=== PATIENT | female | born 1945 | race Caucasian/White ===

== ENCOUNTER 2021-10-04 22:59 | Emergency (ER) | payer OTHER, SELFPAY ==
--- NOTE | ~2021-10-04 | XR_ITS ---
EXAMINATION: XR chest 1V portable DATE: 10/05/2021 00:19 INDICATION: Cough. Shortness of breath. COVID-19 pneumonia. TECHNIQUE: A single frontal view of the chest was obtained. COMPARISON: Chest single view 03/23/2007, CT abdomen and pelvis 02/23/2015 FINDINGS: There are mild airspace opacities in right mid and lower lung zones and left lower lung zon e. No pleural effusion or pneumothorax. The heart size is normal. IMPRESSION: 1. Mild airspace opacities in right mid and lower lung zones and left lower lung zone, consistent wit h atelectasis versus pneumonia. Reviewed, dictated and finalized at location A. SIVE GRADER IMPRESSION: 1. Mild airspace opacities in right mid and lower lung zones and left lower holland g zone, consistent with atelectasis versus pneumonia.
[2021-10-04 23:05] VITALS: BP 102/61; PULSE 85; RESP 18; TEMP 36.8; O2SAT 95
--- NOTE | 2021-10-04 23:54 | ECG_ITS ---
Measurements Intervals [place] Rate: 76 P: 74 [place]: 155 QRS: 16 QRSD: 86 T: 61 QT: 367 QTc: 415 Interpretive Statements SINUS RHYTHM BASELINE ARTIFACT- I, II, III, AVR, AVL, AVF NORMAL ECG Electronically Signed On 10-05-2021 9:00:34 REHABILITATION SERVICES MANAGER by Rafael Valentine D.O.
--- NOTE | 2021-10-04 23:55 | ED.GENADULT ---
HPI - General Adult General Chief complaint: Weakness Stated complaint: increased weakness Time Seen by Provider: 10/04/21 23:45 Source: patient Mode of arrival: ambulatory Limitations: no limitations History of Present Illness HPI narrative: Patient is a 76-year-old female complaining of fatigue, generalized weakness, cough, body aches, fever, nausea, vomiting and shortness of breath that started yesterday. Patient states that she had a Covid home test kit and it was positive. Patient states that today she went to a testing center to confirm her positive test and was told that she is positive for Covid. Related Data Allergies Allergy/AdvReac Type Severity Reaction Status Date / Time codeine Allergy Unknown Verified 07/30/17 10:23 meperidine Allergy Unknown NAUSEA Verified 08/19/14 08:16 Review of Systems Review of Systems: All systems reviewed & are unremarkable except as noted in HPI and below Constitutional: Constitutional: Denies excessive sweating, Denies headache(s), Denies lethargy and Denies weight loss Eyes: Eyes: Denies blurry vision, Denies change in vision and Denies loss of vision ENT: Denies dizziness, Denies ear discharge, Denies headache(s), Denies lip swelling, Denies epistaxis, Denies nasal congestion, Denies neck pain, Denies throat swelling and Denies tongue swelling Cardiovascular: Cardiovascular: Denies chest pain, Denies chest pain at rest, Denies chest pain with activity, Denies diaphoresis, Denies rapid heart rate, Denies edema, Denies irregular heart rhythm, Denies lightheadedness and Denies palpitations Respiratory: Respiratory: Denies chest congestion and Denies hemoptysis Gastrointestinal: Gastrointestinal: Denies abdominal pain, Denies melena, Denies hematochezia, Denies diarrhea and Denies hematemesis Musculoskeletal: Musculoskeletal: Denies abnormal gait, Denies deformity, Denies joint swelling, Denies limited range of motion, Denies neck pain and Denies numbness Neurologic: Denies Abnormal speech present, Denies abnormal gait, Denies confusion, Denies dizziness, Denies headache(s), Denies focal weakness, Denies loss of vision, Denies numbness, Denies Other visual disturbances, Denies Sensory deficit (Neuro) and Denies weakness Psychiatric: Psychiatric: Denies confusion, Denies depression, Denies auditory hallucinations, Denies homicidal ideation and Denies suicidal ideation Endocrine: Endocrine: Denies cold intolerance, Denies excessive sweating, Denies fatigue, Denies heat intolerance and Denies palpitations Hematologic/Lymphatic: Hematologic/Lymphatic: Denies easy bleeding and Denies easy bruising Allergic/Immunologic: Allergic/Immunologic: Denies lip swelling, Denies throat swelling and Denies tongue swelling PMFSH Family History Family History (Updated 07/30/17 @ 10:35 by DOCTOR UNKNOWN) Father Family history of diabetes mellitus in first degree relative Patient's father is Diabetes mellitus, Onset Age: 84 Mother Family history of lung cancer, Onset Age: 84 Patient's mother is Other Family history of cardiovascular disease Family history of malignant neoplasm Social History Social History Smoking status: Never smoker Second hand tobacco smoke exposure: No Alcohol intake: never Course Course Emergency Course: Patient reexamined at 2:50 AM, she walked to the bathroom without difficulty, no shortness of breath or nausea vomiting. Patient states that she is feeling better and ready to go home. Vital Signs Vital signs: Vital Signs Temperature 36.8 C 10/04/21 23:05 Pulse Rate 85 10/04/21 23:05 Respiratory Rate 18 10/04/21 23:05 Blood Pressure 102/61 10/04/21 23:05 Pulse Oximetry 95 10/04/21 23:05 Temperature 36.8 C 10/04/21 23:05 Pulse Rate 73 10/05/21 02:05 Respiratory Rate 18 10/05/21 02:05 Blood Pressure 113/91 H 10/05/21 02:05 Pulse Oximetry 95 10/05/21 02:05 Medical Decision
[2021-10-04 23:59] VITALS: BP 104/63; PULSE 63; RESP 18; O2SAT 92
[2021-10-05] MEDS: ONDANSETRON INJ 4 MG/2 ML VIAL IV PUSH (00:22)
[2021-10-05] MEDS: LACTATED RINGERS 1,000 ML 999 ML IV CONT (00:22)
[2021-10-05 00:44] LABS: Alanine Aminotransferase 35 U/L (4-35); Albumin Level 3.6 g/dL (3.5-5.1); Alkaline Phosphatase 94 U/L (38-126); Anion Gap 6 mmol/L (8-16); Aspartate Amino Transferase 50 U/L (14-36); Bilirubin,Total 0.5 mg/dL (0.2-1.3); Blood Urea Nitrogen 23 mg/dL (7-17); Calcium 8.4 mg/dL (8.4-10.2); Carbon Dioxide 23 mmol/L (22-30); Chloride 103 mmol/L (98-107); Estimated CRCL calculation 34 ml/min; Estimated Glomerular Filt Rate 48; Glucose 131 mg/dL (65-110); Lipase 109 U/L (23-300); Potassium 3.8 mmol/L (3.4-5.0); Sodium 132 mmol/L (137-145)
[2021-10-05 00:55] LABS: Troponin I < 0.012 ng/mL (0.000-0.034)
[2021-10-05 00:56] LABS: Basophils Percent Auto 0.3 % (0.2-1.2); Eosinophils Percent Auto 0.2 % (0-4.4); Hematocrit 37.8 % (37.0-47.0); Hemoglobin 12.3 g/dL (12.0-15.0); Immature Granulocyte Absolute 0.02 K/mm3 (0.00-0.031); Immature Granulocyte Percent A 0.3 % (0-0.5); Lymphocytes Absolute Auto 0.98 K/mm3 (0.9-3.2); Lymphocytes Percent Auto 16.3 % (18.3-44.2); Mean Corpuscular HGB Conc 32.5 g/dl (32-36); Mean Corpuscular Hemoglobin 29.2 pg (26-34); Mean Corpuscular Volume 89.8 fl (80-100); Mean Platelet Volume 10.9 fl (7.4-10.4); Monocytes Absolute Auto 0.6 K/mm3 (0.1-0.6); Monocytes Percent Auto 10.1 % (2.6-8.5); Neutrophils Absolute Auto 4.4 K/mm3 (1.3-6.7); Neutrophils Percent Auto 72.8 % (45.5-73.1); Platelet Count Result 178 k/mm3 (150-375); Red Blood Count 4.21 M/mm3 (4.2-5.4); Red Cell Distribution Width 14.4 % (11.5-14.5)
[2021-10-05 02:05] VITALS: BP 113/91; PULSE 73; RESP 18; O2SAT 95
[2021-10-05 03:35] VITALS: BP 94/56; PULSE 72; RESP 18; O2SAT 94
== END 2021-10-05 03:43 | disposition home or self-care (01) ==
PROVIDERS: Emergency Provider Emergency Medicine
DX: U07.1 COVID-19 (principal)
CPT/HCPCS: 36415; 71045; 80053; 83690; 84484; 85025; 93005; 96361; 96374; 99284; J2405; J7120

== ENCOUNTER 2022-04-15 10:44 | Emergency (ER) | payer OTHER, SELFPAY ==
[2022-04-15 10:50] VITALS: BP 116/81; PULSE 74; RESP 18; TEMP 36.9; O2SAT 100
[2022-04-15 11:12] VITALS: BP 116/81; PULSE 74; RESP 18; TEMP 36.9; O2SAT 100
--- NOTE | 2022-04-15 11:13 | ED.SKABFB ---
HPI - Skin/Abscess/Foreign Bdy General Chief complaint: Skin/Abscess/Foreign Body Stated complaint: Rash Time Seen by Provider: 04/15/22 11:13 Source: patient Mode of arrival: ambulatory Limitations: no limitations History of Present Illness HPI narrative: 77-year-old female presented for complaint of rash to upper body and itching over her her entire body for the last 4 days. Denies changes to lotion, soap, detergent etc. She has been using vega Itch spray as needed. She denies lip, tongue, or throat swelling or itching, shortness of breath or chest pain. MD complaint: rash Related Data Home Medications Medication Instructions Recorded Confirmed latanoprost 0.005 % eye drops drp 04/15/22 Allergies Allergy/AdvReac Type Severity Reaction Status Date / Time codeine Allergy Unknown unknown Verified 04/15/22 10:52 meperidine Allergy Unknown NAUSEA Verified 04/15/22 10:52 Review of Systems Review of Systems: CONSTITUTIONAL: Denies body aches, fever, chills, or sweats. EYES: Denies visual changes, redness, or discharge. ENT: Denies rhinorrhea, congestion, sore throat, or otalgia. CARDIOVASCULAR: Denies chest pain, palpitations, or edema. RESPIRATORY: Denies cough or dyspnea. GASTROINTESTINAL: Denies abdominal pain, nausea, vomiting, or diarrhea. GENITOURINARY: Denies dysuria or hematuria. SKIN: reports rash, itching MUSCULOSKELETAL: Denies back pain, joint pain, or myalgia. NEUROLOGIC: Denies headache, numbness, tingling, or weakness. [facility] Surgical History Surgical History History of hysterectomy Family History Family History Father Family history of diabetes mellitus in first degree relative Patient's father is Diabetes mellitus, Onset Age: 84 Hypertension Heart disease Mother Family history of lung cancer, Onset Age: 84 Patient's mother is Grandparent Diabetes mellitus Breast cancer Other Family history of cardiovascular disease Family history of malignant neoplasm Social History Social History Smoking status: Never smoker Second hand tobacco smoke exposure: No Alcohol intake: current Comments At time of signature, I have reviewed and agree with nursing past medical, surgical, social and family history unless otherwise noted. Please see nursing chart for further information. There is no relevant family history pertinent to the presenting complaint Exam Narrative: GENERAL: Well-appearing EYES: conjunctivae clear, and EOMI. ENT: Mucous membranes moist. Oropharynx without edema, erythema or lesions. NECK: Supple. No lymphadenopathy CHEST: Clear to auscultation. No respiratory distress. HEART: Regular rate and rhythm. SKIN: Warm, dry. Scattered patches of pale pink round raised lesions c/w dermatitis, evidence of scratching to torso and arms NEURO: Alert and oriented x3. PSYCH: Normal mood and affect Course Course Emergency Course: Patient is aware of diagnosis, understands and agrees to treatment plan. Anticipatory guidance given. Patient agrees to follow-up as directed and is aware of reasons to seek care at the emergency department. Portions of this record may have been created with voice recognition software Level of Care: Express Care Visit Vital Signs Vital signs: Vital Signs Temperature 98.4 F 04/15/22 10:50 Pulse Rate 74 04/15/22 10:50 Respiratory Rate 18 04/15/22 10:50 Blood Pressure 116/81 04/15/22 10:50 Pulse Oximetry 100 04/15/22 10:50 Oxygen Delivery Room Air 04/15/22 10:50 Temperature 98.4 F 04/15/22 11:12 Pulse Rate 74 04/15/22 11:12 Respiratory Rate 18 04/15/22 11:12 Blood Pressure 116/81 04/15/22 11:12 Pulse Oximetry 100 04/15/22 11:12 Oxygen Delivery Room Air 04/15/22 11:12 Reviewed MDM
== END 2022-04-15 11:31 | disposition home or self-care (01) ==
PROVIDERS: Emergency Provider Nurse Practitioner Family
DX: L23.9 Allergic contact dermatitis, unspecified cause (principal)
CPT/HCPCS: 99213; G0463

== ENCOUNTER 2022-07-12 11:10 | Outpatient (CLI) | payer OTHER, SELFPAY ==
[2022-07-12 19:50] LABS: Basophils Percent Auto 0.6 % (0.2-1.2); Eosinophils Absolute Auto 0.1 K/mm3 (0-0.3); Eosinophils Percent Auto 1.8 % (0-4.4); Hematocrit 44.3 % (37.0-47.0); Hemoglobin 14.1 g/dL (12.0-15.0); Immature Granulocyte Absolute 0.01 K/mm3 (0.00-0.031); Immature Granulocyte Percent A 0.2 % (0-0.5); Mean Corpuscular HGB Conc 31.8 g/dl (32-36); Mean Corpuscular Hemoglobin 29.3 pg (26-34); Mean Corpuscular Volume 91.9 fl (80-100); Mean Platelet Volume 12.6 fl (7.4-10.4); Monocytes Absolute Auto 0.3 K/mm3 (0.1-0.6); Monocytes Percent Auto 5.8 % (2.6-8.5); Neutrophils Absolute Auto 2.6 K/mm3 (1.3-6.7); Neutrophils Percent Auto 51.6 % (45.5-73.1); Platelet Count Result 189 k/mm3 (150-375); Red Blood Count 4.82 M/mm3 (4.2-5.4)
[2022-07-12 20:24] LABS: Alanine Aminotransferase 22 U/L (6-35); Albumin Level 4.1 g/dL (3.5-5.1); Alkaline Phosphatase 98 U/L (38-126); Anion Gap 6 mmol/L (8-16); Aspartate Amino Transferase 34 U/L (14-36); Bilirubin,Total 0.4 mg/dL (0.2-1.3); Blood Urea Nitrogen 21 mg/dL (7-17); Calcium 9.4 mg/dL (8.4-10.2); Carbon Dioxide 29 mmol/L (22-30); Chloride 104 mmol/L (98-107); Estimated Glomerular Filt Rate > 60; Glucose 93 mg/dL (65-110); Potassium 4.8 mmol/L (3.4-5.0); Sodium 139 mmol/L (137-145)
[2022-07-12 21:49] LABS: Vitamin D 25 Hydroxy 45.7 ng/mL
[2022-07-12 22:20] LABS: Hepatitis C Virus Antibody Negative (Negative)
== END 2022-07-12 11:11 | disposition home or self-care (01) ==
LOC: ANHGOSHLAB 11:11
PROVIDERS: Visit Provider Family Medicine
DX: E55.9 Vitamin D deficiency, unspecified (principal); Z78.0 Asymptomatic menopausal state; Z00.00 Encounter for general adult medical examination without abnormal findings; Z11.59 Encounter for screening for other viral diseases
CPT/HCPCS: 36415; 80053; 82306; 85025; 86803

== ENCOUNTER → 2022-09-18 09:55 | Outpatient (CLI) | payer OTHER, SELFPAY ==
--- NOTE | ~2022-09-18 | XR_ITS ---
XR chest 2V DATE: 09/18/2022 10:20 INDICATION: Cough TECHNIQUE: 2 views COMPARISON: 10/05/2021 portable AP chest FINDINGS: There is bilateral hyperinflation suggesting obstructive airways disease. No pulmonary infi ltrate or consolidation, pleural effusion or pulmonary vascular congestion or pneumothorax. Normal heart size. No hilar or mediastinal enlargement. There is osteopenia. IMPRESSION: Bilateral hyperinflation; otherwise no active cardiopulmonary disease Reviewed, dictated and finalized at location B. CONTENT & SOCIAL MEDIA MANAGER IMPRESSION: Bilateral hyperinflation; otherwise no active cardiopulmonary disea se
== END ==
PROVIDERS: PCP Physician Assistant; Visit Provider Physician Assistant
DX: R05.9 Cough, unspecified (principal); R91.8 Other nonspecific abnormal finding of lung field
CPT/HCPCS: 71046

== ENCOUNTER 2022-11-05 14:25 | Outpatient (CLI) | payer OTHER, SELFPAY ==
--- NOTE | ~2022-11-05 | MM_ITS ---
EXAMINATION: MM screening tejas BI w josé luis HISTORY: Screening mammogram TECHNIQUE: Craniocaudal and mediolateral oblique 3-D tomosynthesis images were obtained and synthetic 2-D images were generated. CAD analysis was submitted and interpreted. COMPARISON: 08/26/2017, 08/23/2015 bilateral screening mammogram examinations BREAST PARENCHYMAL COMPOSITION: There are scattered areas of fibroglandular density. FINDINGS: There is no evidence of suspicious mass, calcification, or architectural distortion to sugg est malignancy in either breast. There has been no suspicious interval change. IMPRESSION: 1. No mammographic evidence of malignancy. 2. Recommend routine screening mammography in one year. BI-RADS Category 1: Negative Reviewed, dictated and finalized at location A. E VEHICLE SERVICE ATTENDANT
--- NOTE | ~2022-11-05 | DEXA_ITS ---
Bone Density Report Name: RADHA ZAMORANO Age: 77 Sex: Female Ethnicity: White Date of : 1945 Indication: postmenopausal; screening for osteoporosis; parental hip fracture; hysterectomy; Referring Provider: CAMILA WHITESIDE Study: Bone densitometry was performed. Exam Date: November 05, 2022 Accession number: [id number] Bone Density: Region BMD T-score Z-score Classification AP Spine(L1-L4) 0.925 -1.1 1.4 Osteopenia Femoral Neck (Left) 0.597 -2.3 -0.1 Osteopenia Total Hip (Left) 0.748 -1.6 0.3 Osteopenia Femoral Neck (Right) 0.575 -2.5 -0.3 Osteoporosis Total Hip (Right) 0.753 -1.5 0.3 Osteopenia Total Hip Mean 0.751 -1.6 0.3 Osteopenia World Health Organization criteria for BMD impression classify patients as: Normal (T-score at or above -1.0), Osteopenia (T-score between -1.0 and -2.5), or Osteoporosis (T-score at or below -2.5). Clinical Information Provided by Patient: Parent has had a hip fracture Has used the following medications: Vitamin D, Calcium Has the following medical conditions: Hysterectomy Patient maximum height was 64 Menopause Age: 49 No regular weight bearing exercise Drinks caffeinated beverages Onset of menses at age 13 Number of children 2 Impression: The patient has osteoporosis, based on the Right Femoral Neck T-score. The patient has risk factors, including: parental hip fracture. Discussion: INCREASED RISK OF FRACTURE. BONE DENSITY IS UNDESIRABLY LOW AT ONE OR MORE SKELETAL SITES, CONSISTENT WITH POSTMENOPAUSAL OSTEOPOROSIS. This patient's lowest T-score meets the World Health Organization's (WHO) criteria for osteoporosis at one or more sites (T-score -2.5 or below). In untreated patients, the risk of osteoporotic fracture increases approximately two-fold for each 1.0 SD decrease in T-score. Low bone density is not the only risk factor for fracture; also consider factors such as patient's age, frailty or poor health, risk of falling, risk of injury, previous osteoporotic fracture, family history of osteoporosis, cigarette smoking, low body weight, etc. Not everyone with low bone mineral density has osteoporosis; osteomalacia and other metabolic bone disorders should also be considered. Patients who have osteoporosis should be evaluated for specific diseases and conditions (secondary causes) that may cause or contribute to bone loss. The [place] [employer] Endocrinologists (AACE) and National Osteoporosis Foundation (NOF) recommend pharmacologic intervention for all postmenopausal women whose T-score is in this range. The patient should follow a healthful lifestyle (good nutrition with adequate calcium and vitamin D, and appropriate weight-bearing exercise). Follow-Up: Consider a repeat BMD and Vertebral Fracture Assessment (VFA) exam in 2 years or sooner if medically necessary, to reassess this patient's status. Reported by: SHALINI on 11/05/2022 3:02:00 PM.
== END 2022-11-05 14:26 | disposition home or self-care (01) ==
LOC: ANHIMG 14:38
PROVIDERS: PCP Physician Assistant; Visit Provider Family Medicine
DX: Z12.31 Encounter for screening mammogram for malignant neoplasm of breast (principal); Z78.0 Asymptomatic menopausal state; M85.88 Other specified disorders of bone density and structure, other site; M85.852 Other specified disorders of bone density and structure, left thigh; M85.851 Other specified disorders of bone density and structure, right thigh; M81.0 Age-related osteoporosis without current pathological fracture
CPT/HCPCS: 77063; 77067; 77080

== ENCOUNTER 2022-11-22 01:03 | Day surgery (SDC) | payer OTHER, SELFPAY ==
[2022-11-09 12:30] VITALS: BMI 26.6
--- NOTE | 2022-11-21 14:30 | PM.HPGS ---
History of Present Illness History of Present Illness Consent: Risks, benefits, and alternatives have been discussed and questions answered. Patient agrees to proceed with procedure. Chief complaint: hx colon polyps Narrative: Renee Gasca is a 77 year old female Referred for colon cancer screening. She had a polyp removed about 7 years ago Review of Systems Review of Systems: All systems reviewed & are unremarkable except as noted in HPI and below PMFSH Past Medical History Medical History Herniated disc Surgical History Surgical History History of hysterectomy Family History Family History Father Family history of diabetes mellitus in first degree relative Patient's father is Diabetes mellitus, Onset Age: 84 Hypertension Heart disease Mother Family history of lung cancer, Onset Age: 84 Patient's mother is Grandparent Diabetes mellitus Breast cancer Other Family history of cardiovascular disease Family history of malignant neoplasm Social History Social History Smoking status: Never smoker Second hand tobacco smoke exposure: No Alcohol intake: current Alcohol use details: occasional Substance use: never Substance use type: does not use Lack of Transportation: No Lack of Food: Never True Current Housing: I Have Housing Concerned About Future Housing: No Difficulty Paying Gas/Electric Bills: No Difficulty Paying for Meds: No Currently Unemployed: No Education: High School Diploma/GED Living arrangements: alone Occupation/Education: retired Gender identity (if verbalized by the patient): Female Spiritual care concerns: No Agree to blood products: Yes Meds Home Medications and Allergies Home Medications Medication Instructions Recorded Confirmed Type latanoprost 0.005 % eye drops 1 drp EACH EYE HS 08/21/22 11/09/22 History tramadol 50 mg tablet 50 mg PO BID PRN Pain 11/07/22 11/09/22 History calcium 600 mg capsule 600 mg PO DAILY 11/09/22 11/09/22 History cholecalciferol (vitamin D3) 25 25 mcg PO DAILY 11/09/22 11/09/22 History mcg (1,000 unit) tablet glucosamine sulf dipot 1 cap PO DAILY 11/09/22 11/09/22 History chlr,msm,chond 550 mg-C 30 mg-david 1 mg capsule (Glucosamine Chondroitin) multivitamin with minerals-folic 1 tablet PO DAILY 11/09/22 11/09/22 History acid 0.4 mg tablet vit A 300 mcg-C 200 mg-E 27 1 tablet PO DAILY 11/09/22 11/09/22 History mg-lutein 2 mg and minerals tablet (Healthy Eyes) Allergies Allergy/AdvReac Type Severity Reaction Status Date / Time codeine Allergy Unknown Nausea Verified 11/22/22 08:12 meperidine Allergy Unknown NAUSEA Verified 11/22/22 08:12 Exam Resp: Auscultation: clear to auscultation bilaterally Cardio: Rate: regular rate Rhythm: regular rhythm GI: GI Palp: Yes Soft to palpation and No Tenderness to palpation present (GI) Assessment and Plan Assessment and plan (1) Colon cancer screening: Code(s): Z12.11 - Encounter for screening for malignant neoplasm of colon Status: Acute Assessment and Plan: Colonoscopy with possible biopsy or polypectomy or cautery or injection of substances.
[2022-11-22 08:13] VITALS: BP 118/68; PULSE 82; RESP 18; TEMP 36.2; O2SAT 99
[2022-11-22] MEDS: LACTATED RINGERS 1,000 ML 150 ML IV CONT (08:24)
--- NOTE | 2022-11-22 08:47 | WPDANESEPPF ---
Anes - Initial Pre Proc Eval Procedure: Operation Date: 11/22/22 09:30 Proposed Procedures p Colonoscopy - Jett Mack MD Date/Time: 11/22/22 08:47 Surgeon: Jett Mack MD Pre Op Diagnosis: hx colon polyps Patient Data Age: 77 Gender: F Height: 1.6 m Weight: 70.7 kg Last Vital Signs Temp 36.2 C L 11/22/22 08:13 Pulse 82 11/22/22 08:13 Resp 18 11/22/22 08:13 BP 118/68 11/22/22 08:13 Pulse Ox 99 11/22/22 08:13 O2 Del Method Room Air 11/22/22 08:13 Allergies Allergy/AdvReac Type Severity Reaction Status Date / Time codeine Allergy Unknown Nausea Verified 11/22/22 08:12 meperidine Allergy Unknown NAUSEA Verified 11/22/22 08:12 Home Medications Medication Instructions Recorded Confirmed Type latanoprost 0.005 % eye drops 1 drp EACH EYE HS 08/21/22 11/09/22 History tramadol 50 mg tablet 50 mg PO BID PRN Pain 11/07/22 11/09/22 History calcium 600 mg capsule 600 mg PO DAILY 11/09/22 11/09/22 History cholecalciferol (vitamin D3) 25 25 mcg PO DAILY 11/09/22 11/09/22 History mcg (1,000 unit) tablet glucosamine sulf dipot 1 cap PO DAILY 11/09/22 11/09/22 History chlr,msm,chond 550 mg-C 30 mg-david 1 mg capsule (Glucosamine Chondroitin) multivitamin with minerals-folic 1 tablet PO DAILY 11/09/22 11/09/22 History acid 0.4 mg tablet vit A 300 mcg-C 200 mg-E 27 1 tablet PO DAILY 11/09/22 11/09/22 History mg-lutein 2 mg and minerals tablet (Healthy Eyes) Patient hx anesthesia problems: post op nausea/vomiting Family hx anesthesia problems: none Results Review: All pre-operative results and documents have been reviewed as part of the pre-operative evaluation. [facility] Past Medical History Medical History Herniated disc Surgical History Surgical History History of hysterectomy Family History Family History Father Family history of diabetes mellitus in first degree relative Patient's father is Diabetes mellitus, Onset Age: 84 Hypertension Heart disease Mother Family history of lung cancer, Onset Age: 84 Patient's mother is Grandparent Diabetes mellitus Breast cancer Other Family history of cardiovascular disease Family history of malignant neoplasm Social History Social History Smoking status: Never smoker Second hand tobacco smoke exposure: No Alcohol intake: current Alcohol use details: occasional Substance use: never Substance use type: does not use Lack of Transportation: No Lack of Food: Never True Current Housing: I Have Housing Concerned About Future Housing: No Difficulty Paying Gas/Electric Bills: No Difficulty Paying for Meds: No Currently Unemployed: No Education: High School Diploma/GED Living arrangements: alone Occupation/Education: retired Gender identity (if verbalized by the patient): Female Spiritual care concerns: No Agree to blood products: Yes Anes - Eval Final PreProcedure Day of Procedure 11/22/22 08:47 Patient weight: overweight Heart: regular rate and rhythm Lungs: clear to auscultation Airway: Mallampati scale class 1 Neurological: alert and oriented Last oral intake: >/= 8 hours ASA classification: II Emergent: no Anesthetic plan: proceed Anesthesia type and monitoring: general GIVS and standard monitoring Results Review: All pre-operative results and documents have been reviewed as part of the pre-operative evaluation. Informed Consent: The patient's anesthetic plan and its attendant risks and benefits were discussed with the patient/family/POA. Questions were solicited and answers provided to the satisfaction of the patient/family/POA.
[2022-11-22 09:14] VITALS: BP 107/91; PULSE 71; RESP 18; O2SAT 98
[2022-11-22 09:24] VITALS: BP 117/59; PULSE 72; O2SAT 99
[2022-11-22 09:34] VITALS: BP 113/64; PULSE 77; O2SAT 100
== END 2022-11-22 09:49 | disposition home or self-care (01) ==
PROVIDERS: PCP Family Medicine; Visit Provider Internal Medicine Gastroenterology
PROC: 0DJD8ZZ Inspection of Lower Intestinal Tract, Via Natural or Artificial Opening Endoscopic (ICD-10-PCS; CPT 45378; principal; 2022-11-22 09:30)
DX: Z12.11 Encounter for screening for malignant neoplasm of colon (principal); D12.8 Benign neoplasm of rectum; K57.30 Diverticulosis of large intestine without perforation or abscess without bleeding; K64.8 Other hemorrhoids
CPT/HCPCS: 45385; 88305; J2704; J7120

== ENCOUNTER 2023-04-10 09:24 | Outpatient (CLI) | payer OTHER, SELFPAY ==
[2023-04-10 09:49] LABS: Basophils Percent Auto 0.4 % (0.2-1.2); Eosinophils Absolute Auto 0.1 K/mm3 (0-0.3); Eosinophils Percent Auto 0.8 % (0-4.4); Hematocrit 41.8 % (37.0-47.0); Hemoglobin 13.3 g/dL (12.0-15.0); Immature Granulocyte Absolute 0.02 K/mm3 (0.00-0.031); Immature Granulocyte Percent A 0.3 % (0-0.5); Lymphocytes Absolute Auto 2.04 K/mm3 (0.9-3.2); Lymphocytes Percent Auto 26.4 % (18.3-44.2); Mean Corpuscular HGB Conc 31.8 g/dl (32-36); Mean Corpuscular Hemoglobin 29.5 pg (26-34); Mean Corpuscular Volume 92.7 fl (80-100); Mean Platelet Volume 10.4 fl (7.4-10.4); Monocytes Absolute Auto 0.4 K/mm3 (0.1-0.6); Monocytes Percent Auto 4.9 % (2.6-8.5); Neutrophils Absolute Auto 5.2 K/mm3 (1.3-6.7); Neutrophils Percent Auto 67.2 % (45.5-73.1); Platelet Count Result 223 k/mm3 (150-375); Red Blood Count 4.51 M/mm3 (4.2-5.4); Red Cell Distribution Width 14.6 % (11.5-14.5); White Blood Count 7.7 K/mm3 (4.5-10.0)
[2023-04-10 10:07] LABS: Alanine Aminotransferase 18 U/L (6-35); Albumin Level 3.9 g/dL (3.5-5.1); Alkaline Phosphatase 74 U/L (38-126); Anion Gap 3 mmol/L (8-16); Aspartate Amino Transferase 24 U/L (14-36); Bilirubin,Total 0.4 mg/dL (0.2-1.3); Blood Urea Nitrogen 32 mg/dL (7-17); Calcium 9.5 mg/dL (8.4-10.2); Carbon Dioxide 33 mmol/L (22-30); Chloride 105 mmol/L (98-107); Cholesterol 208 mg/dL (0-200); Estimated Glomerular Filt Rate > 60; Glucose 80 mg/dL (65-110); HDL Direct 79 mg/dL; LDL Cholesterol Direct 91 mg/dL; Potassium 4.5 mmol/L (3.4-5.0); Sodium 141 mmol/L (137-145); Triglycerides 97 mg/dL (<150)
== END 2023-04-10 09:25 | disposition home or self-care (01) ==
LOC: ANHLAB 09:27
PROVIDERS: PCP Family Medicine; Visit Provider Physician Assistant
DX: E66.3 Overweight (principal); E78.5 Hyperlipidemia, unspecified; H40.9 Unspecified glaucoma; M85.80 Other specified disorders of bone density and structure, unspecified site; Z78.0 Asymptomatic menopausal state; Z79.899 Other long term (current) drug therapy
CPT/HCPCS: 36415; 80053; 80061; 84443; 85025

== ENCOUNTER 2023-04-23 09:49 | Outpatient (CLI) | payer OTHER, SELFPAY ==
--- NOTE | ~2023-04-23 | XR_ITS ---
EXAMINATION: XR lumbar spine min 4V DATE: 04/23/2023 10:45 INDICATION: Low back pain TECHNIQUE: Anteroposterior and lateral views of the lumbar spine, and cone-down lateral view of the l umbosacral junction were obtained. COMPARISON: None. FINDINGS: There are 2 mm of anterolisthesis of L3 on L4. The vertebral body heights are normal. There is mild loss of intervertebral disc space height at L5-S1. There is moderate facet joint osteoarthri tis. No fracture is identified. IMPRESSION: 1. Mild lumbar spondylosis without acute findings. Reviewed, dictated and finalized at location L.
--- NOTE | ~2023-04-23 | XR_ITS ---
AP view of the pelvis and AP and lateral views of the right hip Clinical history: Pain Findings: No acute fracture or dislocation is seen. Osseous alignment is anatomic. Bilateral hip and SI joint spaces are preserved. Soft tissues are unremarkable. Impression: No significant abnormality is seen. Reviewed, dictated and finalized at location . Impression: No significant abnormality is seen.
[2023-04-23 11:02] LABS: Alanine Aminotransferase 21 U/L (6-35); Albumin Level 3.9 g/dL (3.5-5.1); Alkaline Phosphatase 82 U/L (38-126); Aspartate Amino Transferase 26 U/L (14-36); Bilirubin,Total 0.2 mg/dL (0.2-1.3)
[2023-04-26 21:09] LABS: Albumin 3.6 g/dL (3.8-4.8); Alpha 1 Globulin 0.3 g/dL (0.2-0.3); Alpha 2 Globulin 0.8 g/dL (0.5-0.9); Beta 1 Globulin 0.4 g/dL (0.4-0.6); Protein, Total 6.5 g/dL (6.1-8.1)
[2023-05-02 13:22] LABS: Creatinine, Random Urine 26 mg/dL (20-275)
== END 2023-04-23 09:50 | disposition home or self-care (01) ==
PROVIDERS: PCP Family Medicine; Visit Provider Family Medicine
DX: M89.8X9 Other specified disorders of bone, unspecified site (principal); M54.50 Low back pain, unspecified; M54.30 Sciatica, unspecified side; M43.06 Spondylolysis, lumbar region
CPT/HCPCS: 36415; 72110; 73502; 80076; 82570; 84155; 84156; 84165; 84166

== ENCOUNTER 2023-04-24 03:13 | Emergency (ER) | payer OTHER, SELFPAY ==
--- NOTE | ~2023-04-24 | XR_ITS ---
EXAMINATION: XR chest 2V DATE: 04/24/2023 03:49 INDICATION: Left chest pain. TECHNIQUE: Frontal and lateral views of the chest were obtained. COMPARISON: Chest 2 views 09/18/2022 FINDINGS: The chest demonstrates clear lungs without pneumonia, pleural effusion, or pneumothorax. Th e heart size is normal. IMPRESSION: 1. No acute cardiopulmonary disease. Reviewed, dictated and finalized at location E.
--- NOTE | 2023-04-24 03:15 | ECG_ITS ---
Measurements Intervals [place] Rate: 62 P: 66 CO: 149 QRS: 3 QRSD: 93 T: 50 QT: 384 QTc: 390 Interpretive Statements SINUS RHYTHM POSSIBLE LEFT ATRIAL ENLARGEMENT DELAYED PRECORDIAL R/S TRANSITION BORDERLINE ECG COMPARED TO ECG 10/05/2021 00:49:52 NO SIGNIFICANT CHANGES Electronically Signed On 04-24-2023 7:05:19 CDT by Rafael Valentine D.O.
[2023-04-24 03:18] VITALS: BP 143/101; PULSE 70; RESP 22; TEMP 36.6; O2SAT 99
[2023-04-24 03:27] VITALS: O2SAT 91
[2023-04-24 03:29] LABS: Basophils Percent Auto 0.1 % (0.2-1.2); Hematocrit 43.2 % (37.0-47.0); Immature Granulocyte Absolute 0.01 K/mm3 (0.00-0.031); Immature Granulocyte Percent A 0.1 % (0-0.5); Lymphocytes Absolute Auto 4.46 K/mm3 (0.9-3.2); Lymphocytes Percent Auto 66.9 % (18.3-44.2); Mean Corpuscular HGB Conc 32.4 g/dl (32-36); Mean Corpuscular Hemoglobin 29.4 pg (26-34); Mean Corpuscular Volume 90.6 fl (80-100); Mean Platelet Volume 10.4 fl (7.4-10.4); Monocytes Absolute Auto 0.4 K/mm3 (0.1-0.6); Monocytes Percent Auto 5.5 % (2.6-8.5); Neutrophils Absolute Auto 1.8 K/mm3 (1.3-6.7); Neutrophils Percent Auto 27.4 % (45.5-73.1); Platelet Count Result 202 k/mm3 (150-375); Red Blood Count 4.77 M/mm3 (4.2-5.4); Red Cell Distribution Width 14.3 % (11.5-14.5); White Blood Count 6.7 K/mm3 (4.5-10.0)
[2023-04-24] MEDS: ASPIRIN 81 MG CHEWABLE TABLET 324 MG PO (03:33)
[2023-04-24 03:42] LABS: Alanine Aminotransferase 21 U/L (6-35); Albumin Level 3.9 g/dL (3.5-5.1); Alkaline Phosphatase 83 U/L (38-126); Anion Gap 1 mmol/L (8-16); Aspartate Amino Transferase 27 U/L (14-36); Bilirubin,Total 0.3 mg/dL (0.2-1.3); Blood Urea Nitrogen 28 mg/dL (7-17); Calcium 9.3 mg/dL (8.4-10.2); Carbon Dioxide 35 mmol/L (22-30); Chloride 105 mmol/L (98-107); Estimated CRCL calculation 44 ml/min; Estimated Glomerular Filt Rate > 60; Glucose 89 mg/dL (65-110); Lipase 182 U/L (23-300); Potassium 3.9 mmol/L (3.4-5.0); Sodium 141 mmol/L (137-145)
[2023-04-24 03:54] LABS: Troponin I < 0.012 ng/mL (0.000-0.034)
[2023-04-24 03:56] LABS: Prothrombin Time 13.3 Seconds (11.1-14.7)
[2023-04-24 03:57] LABS: Partial Thromboplastin Time 27.6 SECONDS (22.3-36.8)
[2023-04-24] MEDS: MORPHINE SULFATE (*CRX) 4 MG/ML INJ IV PUSH (04:39)
[2023-04-24] MEDS: ONDANSETRON INJ 4 MG/2 ML VIAL IV PUSH (04:39)
--- NOTE | 2023-04-24 04:44 | ED.CHESTPAIN ---
HPI - Chest Pain General Chief Complaint: Chest Pain <SHELBIE Ross Last Filed: 04/24/23 14:08> Stated Complaint: left sided breast/back pain <SHELBIE Ross Last Filed: 04/24/23 14:08> Time Seen by Provider: 04/24/23 03:46 <SHELBIE Ross Last Filed: 04/24/23 14:08> Source: patient <SHELBIE Ross Last Filed: 04/24/23 14:08> Mode of arrival: ambulatory <SHELBIE Ross Last Filed: 04/24/23 14:08> Limitations: no limitations <SHELBIE Ross Last Filed: 04/24/23 14:08> History of Present Illness HPI narrative: Patient is a 78-year-old female who presents to the ED with report of left-sided chest wall pain. Patient reports she saw her primary care doctor last for pain all over, which she described as pain from her head to her toes. Unable to localize pain. Primary care doctor prescribed her prednisone. Patient did not initially pick this up from the pharmacy. On Saturday, patient developed worsening and more localized pain to her left lower chest wall below her left breast, radiating around to her left mid to upper back. She states the pain has been constant since then. Unable to find any relief. She has not taken the prednisone. Has not tried anything else for the pain. She reports mild difficulty breathing due to the pain. Denies pain worsening with deep breaths or exertional SOB. She noticed a small area of rash below her left breast today. Patient denies any fevers, nausea, vomiting, abdominal pain, BLE pain or swelling. <SHELBIE Ross Last Filed: 04/24/23 14:08> Related Data Home Medications: Home Medications Medication Instructions Recorded Confirmed latanoprost 0.005 % eye drops 1 drp EACH EYE HS 08/21/22 04/24/23 tramadol 50 mg tablet 50 mg PO BID PRN Pain 11/07/22 04/24/23 calcium 600 mg capsule 600 mg PO DAILY 11/09/22 04/24/23 cholecalciferol (vitamin D3) 25 25 mcg PO DAILY 11/09/22 04/24/23 mcg (1,000 unit) tablet glucosamine sulf dipot 1 cap PO DAILY 11/09/22 04/24/23 chlr,msm,chond 550 mg-C 30 mg-david 1 mg capsule (Glucosamine Chondroitin) multivitamin with minerals-folic 1 tablet PO DAILY 11/09/22 04/24/23 acid 0.4 mg tablet vit A 300 mcg-C 200 mg-E 27 1 tablet PO DAILY 11/09/22 04/24/23 mg-lutein 2 mg and minerals tablet (Healthy Eyes) <Gabriella Mackenzie PA-C - Last Filed: 04/24/23 14:08> Allergies/Adverse Reactions: Allergies Allergy/AdvReac Type Severity Reaction Status Date / Time codeine Allergy Unknown Nausea Verified 04/24/23 11:44 meperidine Allergy Unknown NAUSEA Verified 04/24/23 11:44 <Gabriella Mackenzie PA-C - Last Filed: 04/24/23 14:08> Review of Systems Review of Systems: CONSTITUTIONAL: Denies fever, chills, or sweats. EYES: Denies visual changes. CARDIOVASCULAR: See HPI. RESPIRATORY: See HPI. GASTROINTESTINAL: Denies abdominal pain, nausea, vomiting, or diarrhea. GENITOURINARY: Denies dysuria or hematuria. SKIN: See HPI. MUSCULOSKELETAL: See HPI. NEUROLOGIC: Denies headache, numbness, or weakness. <SHELBIE Ross Last Filed: 04/24/23 14:08> All systems reviewed & are unremarkable except as noted in HPI and below <Gabriella Mackenzie PA-C - Last Filed: 04/24/23 14:08> [facility] Past Medical History Medical History: Medical History Herniated disc <SHELBIE Ross Last Filed: 04/24/23 14:08> Surgical History Surgical History: Surgical History History of hysterectomy <SHELBIE Ross Last Filed: 04/24/23 14:08> Family History Family History: Family History Father Family history of diabetes mellitus in first degree relative Patient's father is
[2023-04-24] MEDS: valACYclovir HCL 500 MG TABLET 1000 MG PO (05:08)
[2023-04-24 05:14] VITALS: BP 134/79; PULSE 62; RESP 16; O2SAT 98
== END 2023-04-24 05:22 | disposition home or self-care (01) ==
PROVIDERS: Emergency Medicine; Emergency Provider Physician Assistant; PCP Family Medicine
DX: B02.9 Zoster without complications (principal); R07.89 Other chest pain
CPT/HCPCS: 36415; 71046; 80053; 83690; 84484; 85025; 85610; 85730; 93005; 96374; 96375; 99284; A9270; J2270; J2405

== ENCOUNTER 2023-09-18 10:47 | Outpatient (CLI) | payer OTHER, SELFPAY ==
[2023-09-18 11:42] LABS: Basophils Percent Auto 0.6 % (0.2-1.2); Eosinophils Absolute Auto 0.1 K/mm3 (0-0.3); Hemoglobin 13.9 g/dL (12.0-15.0); Immature Granulocyte Absolute 0.01 K/mm3 (0.00-0.031); Immature Granulocyte Percent A 0.2 % (0-0.5); Lymphocytes Absolute Auto 2.05 K/mm3 (0.9-3.2); Lymphocytes Percent Auto 40.1 % (18.3-44.2); Mean Corpuscular HGB Conc 32.3 g/dl (32-36); Mean Corpuscular Hemoglobin 29.6 pg (26-34); Mean Corpuscular Volume 91.7 fl (80-100); Mean Platelet Volume 10.5 fl (7.4-10.4); Monocytes Absolute Auto 0.3 K/mm3 (0.1-0.6); Monocytes Percent Auto 6.1 % (2.6-8.5); Neutrophils Absolute Auto 2.6 K/mm3 (1.3-6.7); Platelet Count Result 234 k/mm3 (150-375); Red Blood Count 4.69 M/mm3 (4.2-5.4); Red Cell Distribution Width 14.2 % (11.5-14.5); White Blood Count 5.1 K/mm3 (4.5-10.0)
[2023-09-18 12:01] LABS: Alanine Aminotransferase 20 U/L (6-35); Albumin Level 4.1 g/dL (3.5-5.1); Alkaline Phosphatase 89 U/L (38-126); Anion Gap 6 mmol/L (8-16); Aspartate Amino Transferase 27 U/L (14-36); Bilirubin,Total 0.6 mg/dL (0.2-1.3); Blood Urea Nitrogen 25 mg/dL (7-17); Calcium 9.2 mg/dL (8.4-10.2); Carbon Dioxide 29 mmol/L (22-30); Chloride 105 mmol/L (98-107); Cholesterol 230 mg/dL (0-200); Estimated Glomerular Filt Rate > 60; Glucose 87 mg/dL (65-110); HDL Direct 86 mg/dL; Potassium 4.2 mmol/L (3.4-5.0); Sodium 140 mmol/L (137-145); Triglycerides 50 mg/dL (<150)
[2023-09-18 12:11] LABS: LDL Cholesterol Direct 99 mg/dL
== END 2023-09-18 10:48 | disposition home or self-care (01) ==
PROVIDERS: PCP Family Medicine; Visit Provider Physician Assistant
DX: E78.2 Mixed hyperlipidemia (principal); M81.0 Age-related osteoporosis without current pathological fracture; Z79.899 Other long term (current) drug therapy
CPT/HCPCS: 36415; 80053; 80061; 84443; 85025

== ENCOUNTER 2024-03-26 11:08 | Outpatient (CLI) | payer OTHER, SELFPAY ==
[2024-03-26 15:30] LABS: Alanine Aminotransferase 16 U/L (6-35); Alkaline Phosphatase 69 U/L (38-126); Anion Gap 4 mmol/L (4-12); Aspartate Amino Transferase 42 U/L (14-36); Bilirubin,Total 0.4 mg/dL (0.2-1.3); Blood Urea Nitrogen 27 mg/dL (7-17); Calcium 9.7 mg/dL (8.4-10.2); Carbon Dioxide 30 mmol/L (22-30); Chloride 105 mmol/L (98-107); Cholesterol 226 mg/dL (0-200); Estimated Glomerular Filt Rate > 60; Glucose 88 mg/dL (65-110); HDL Direct 92 mg/dL; Potassium 4.5 mmol/L (3.4-5.0); Sodium 139 mmol/L (137-145); Triglycerides 97 mg/dL (<150)
[2024-03-26 15:40] LABS: LDL Cholesterol Direct 104 mg/dL
[2024-03-26 16:09] LABS: Vitamin D 25 Hydroxy 49.6 ng/mL
[2024-03-26 16:35] LABS: Rheumatoid Factor < 12.0 IU/ML (<12)
[2024-03-27 13:38] LABS: ANA Cascade Screen NEGATIVE (NEGATIVE)
== END 2024-03-26 11:09 | disposition home or self-care (01) ==
PROVIDERS: PCP Family Medicine; Visit Provider Family Medicine
DX: Z78.0 Asymptomatic menopausal state (principal); E78.2 Mixed hyperlipidemia; H34.239 Retinal artery branch occlusion, unspecified eye
CPT/HCPCS: 36415; 80053; 80061; 82306; 86038; 86225; 86235; 86364; 86430

== ENCOUNTER 2024-06-23 08:46 | Outpatient (CLI) | payer OTHER, SELFPAY ==
--- NOTE | ~2024-06-23 | MM_ITS ---
EXAMINATION: MM screening tejas BI w josé luis HISTORY: Screening mammogram TECHNIQUE: Craniocaudal and mediolateral oblique 3-D tomosynthesis images were obtained and synthetic 2-D images were generated. CAD analysis was submitted and interpreted. COMPARISON: No prior mammogram is available for comparison at this institution. BREAST PARENCHYMAL COMPOSITION:Not Dense. There are scattered areas of fibroglandular density. FINDINGS: No suspicious mass, calcification, or architectural distortion are identified in either jarod ast to suggest malignancy. There has been no suspicious interval change. IMPRESSION: No mammographic evidence of malignancy. Recommend routine screening mammography in one year. BI-RADS Category 2: Benign finding(s). Reviewed, dictated and finalized at location .
== END 2024-06-23 08:47 | disposition home or self-care (01) ==
LOC: ANHIMG 08:48
PROVIDERS: PCP Family Medicine; Visit Provider Physician Assistant
DX: Z12.31 Encounter for screening mammogram for malignant neoplasm of breast (principal)
CPT/HCPCS: 77063; 77067

== ENCOUNTER 2025-01-20 08:47 | Outpatient (CLI) | payer OTHER, SELFPAY ==
--- NOTE | ~2025-01-20 | DEXA_ITS ---
Bone Density Report Name: RADHA ZAMORANO Age: 79 Sex: Female Ethnicity: White Date of : 1945 Indication: osteopenia; parental hip fracture; height loss; hysterectomy; Referring Provider: CAMILA WHITESIDE Study: Bone densitometry was performed. Exam Date: January 20, 2025 Accession number: [id number] Bone Density: Region BMD T-score Z-score Classification AP Spine(L1-L4) 0.928 -1.1 1.5 Osteopenia Femoral Neck (Left) 0.639 -1.9 0.4 Osteopenia Total Hip (Left) 0.806 -1.1 0.9 Osteopenia Femoral Neck (Right) 0.607 -2.2 0.1 Osteopenia Total Hip (Right) 0.762 -1.5 0.5 Osteopenia Total Hip Mean 0.784 -1.3 0.7 Osteopenia World Health Organization criteria for BMD impression classify patients as: Normal (T-score at or above -1.0), Osteopenia (T-score between -1.0 and -2.5), or Osteoporosis (T-score at or below -2.5). 10-year Fracture Risk(1): Major Osteoporotic Fracture 29% Hip Fracture 18% Reported Risk Factors: [place] (), Neck BMD=0.607, BMI=29.9, parental fracture (1) FRAX(R) Version 3.08. Fracture probability calculated for an untreated patient. Fracture probability may be lower if the patient has received treatment. Previous Exams: Region Exam Age BMD T-score BMD Change BMD Change Date g/cm2 vs Baseline vs Previous AP Spine (L1-L4) 01/20/2025 79 0.928 -1.1 0.004 (0.4%) 0.004 (0.4%) 11/05/2022 77 0.925 -1.1 Total Hip(Left) 01/20/2025 79 0.806 -1.1 0.058 (7.8%)* 0.058 (7.8%)* 11/05/2022 77 0.748 -1.6 Total Hip(Right) 01/20/2025 79 0.762 -1.5 0.009 (1.2%) 0.009 (1.2%) 11/05/2022 77 0.753 -1.5 *Denotes significance at 95% confidence level, LSC for AP Spine = 0.022 g/cm2, LSC for Total Hip = 0.027 g/cm2 Clinical Information Provided by Patient: Parent has had a hip fracture Has used the following medications: Vitamin D, Calcium Has the following medical conditions: Hysterectomy Patient maximum height was 64 Menopause Age: 49 No regular weight bearing exercise Does not regularly consume dairy products Drinks caffeinated beverages Onset of menses at age 13 Number of children 2 Impression: The patient has low bone mass, based on the Right Femoral Neck T-score. The patient has an estimated ten-year risk of hip fracture of 18% and an estimated ten-year risk of major fracture of 29%, based on the WHO FRAX algorithm. The patient has risk factors, including: parental hip fracture. No significant bone loss was observed. Discussion: BONE DENSITY IS LOW AT ONE OR MORE SKELETAL SITES. THE PATIENT'S BMD AND CLINICAL RISK FACTORS CONTRIBUTE TO THIS PATIENT'S HIGH RISK OF FRACTURE. This patient's lowest T-score is low at one or more skeletal sites. It meets the World Health Organization's (WHO) criteria for ?low bone mass? (T-score between -1.0 and -2.5). The patient's 10-year risk of hip fracture and 10 year risk of a major osteoporotic fracture as calculated by FRAX exceeds the threshold where pharmacological therapy is recommended by the National Osteoporosis Foundation (NOF). However, all treatment decisions require clinical judgment and consideration of individual patient factors, including patient preferences, comorbidities, previous drug use, risk factors not captured in the FRAX model (e.g., frailty, falls, vitamin D deficiency, increased bone turnover, interval significant decline in bone density) and possible under or overestimation of fracture risk by FRAX. The patient should follow a healthful lifestyle (good nutrition with adequate calcium and vitamin D, and appropriate weight-bearing exercise). Follow-Up: Consider a repeat BMD and Vertebral Fracture Assessment (VFA) exam in 2 years or sooner if medically necessary, to reassess this patient's status. Reported by: JASON on 01/20/2025 9:30:00 AM. Reviewed, dictated and finalized at location AJanie RANGEL
--- OUTSIDE RECORDS SUMMARY | 2025-01-20 09:32 | XMS_ITS | Continuity of Care Document ---
Author Organization [facility] [address] [place] [address] Phone Care Team Providers Care Social Work Program Coordinator Name Role Phone Wilber Montalvo Unavailable Unavailable Procedures Procedure Date Post-op Follow-up Visit Post-op Follow-up Visit Remove Cataract, Insert Lens Eye Exam & Treatment I[facility]-Professional Post-op Follow-up Visit Post-op Follow-up Visit Remove Cataract, Insert Lens Office/outpatient Visit, [facility] IOLMaster Cataract Kit SEC MV Tax - Medical Advance Directives Directive Yes / No Effective Date File Name No Information Encounters Encounter Description Practice Location Reason(s) For Visit Diagnoses Date Provider Providers Copied on Encounter [facility], [address] [place] [address] [address], [place], [place], [id number], [place] tel:[phone] [facility] No Information Nov-1 0-201 0 Katia Merino. [address] , [address], [place], [address], [place]. tel:[phone] [facility], [address], [place], [place], [id number], [place] tel:[phone] [facility] No Information Aug-0 3-201 0 Katia Merino. [address] , [address], [place], [address], [place]. tel:[phone] [facility], [address], [place], [place], [id number], [place] tel:[phone] [facility] No Information Nov-0 2-201 0 Doisy Edward. [address] , [address], [place], [place], [facility], . tel:[phone] Referring Provider: Giovanna Chi OD, [address], [place], [address]. tel:[phone] [facility], [address], [place], [place], [id number], tel:[phone] [facility] [place] No Information Oct-2 2-201 0 Doisy Edward. [address], [place], [place], [facility], . tel:[phone] Referring Provider: Giovanna Chi OD, [address], [place], [address]. tel:[phone] [facility], [address], [place], [place], [id number], [place] tel:[phone] [facility] No Information Mar-2 5-201 0 Doisy Edward. [address], [place], [place], [facility], [place]. tel:[phone] [facility], [address], [place], [place], [id number], [place] tel:[phone] [facility] No Information Mar-1 7-201 0 Doisy Edward. [address], [place], [facility], [place]. tel:[phone] [facility], [address], [place], [place], [id number], [place] tel:[phone] [facility] No Information 6-201 0 Doisy Edmartine. [address] , [address], [place], [address], [place]. tel:[phone] Referring Provider: Giovanna Chi OD, [address] [facility] [address], [place], [address]. tel:[phone] Office/outpat ient Visit, [facility], [address], [place], [place], [id number], [place] tel:[phone] [facility] No Information 0-201 0 Doisy Edward. [address] , [address], [place], [address], [place]. tel:[phone] Referring Provider: Giovanna Chi OD, [address] [facility], [place], [address]. tel:[phone] Family History Family Member Type Diagnosis Age At Onset No Information Payers Payer name Insurance type Covered green party ID Authoriza tion(s) No Information Social History Type Description Quantity Date Captured Comments Sex Female Smoking Status No Information Chief Complaint And Reason For Visit No Information Reason For Referral Reason For Referral No Information History Of Present Illness Encounter Date Complaint History Of Prese nt Illness No Information Functional Status Date Functional Assessmen t No Information Instructions Date Instruction Additional Infor mation No Information Assessments Type Assessment Date No Information Patient Care Teams Name Effective Dates (start - stop) Status Members No Information
--- OUTSIDE RECORDS SUMMARY | 2025-01-20 09:32 | XMS_ITS | Clinical Summary ---
Author Organization [facility] Care Team Providers Care Tectonophysicist Name Role Phone Unavailable Primary Care Provider Unavailabl e Social History Tobacco Use Types Packs/Day Years Used Date Smoking Tobacco: Never Assessed Comments Unknown Sex and Gender Information Value Date Recorded Sex Assigned at Not on file Legal Sex Female 9:50 PM CDT Gender Identity Not on file Sexual Orientation Not on file Plan of Treatment Health Maintenance Due Date Last Done Comments DEXA Bone Density 1945 Hepatitis C Virus (HCV) Screening 1945 TdaP Immunization 1945 Pneumococcal Immunization (5 0+ years) (1 of 1 - PCV) 02/29/1996 Zoster Immunization (1 of 2) 02/29/1996 Respiratory Syncytial Virus (RSV) Immunization (Adult) (1 - 1-dose 75+ series) 2021 Influenza Immunization (#1) 2024 SARS-COV-2 Immunization ( - 2023- season) 2024 Hepatitis B Immunization Aged Out No longer eligible based on patient's age to complete this topic Meningococcal Immunization (ACWY) Aged Out No longer eligible based on patient's age to complete this topic Rotavirus Immunization Aged Out No lo nger eligible based on patient's age to complete this topic
--- OUTSIDE RECORDS SUMMARY | 2025-01-20 09:32 | XMS_ITS | Clinical Summary ---
Author Organization [facility] Address [address] [place] [address] Care Team Providers Care Bevel Mill Operator Name Role Phone Jazlyn Downey MD Primary Care Provider [phone] Source Comments [facility] and Associated Physician Practices is amultiple site organization consisting of ambulatory clinics and hospital sitesin [place], [place], [place] and [place]. This disclosure is being madepursuant to the Care Everywhere program and may not contain all information available regarding this patient. Last updated 18.[facility] Family History Medical History Relation Name Comments Cancer - Breast Paternal Grandmother Relation Name Status Comments Paternal Grandmother Social History Tobacco Use Types Packs/Day Years Used Date Smoking Tobacco: Never Assessed Sex and Gender Information Value Date Recorded Sex Assigned at Not on file Gender Identity Not on file Sexual Orientation Not on file Plan of Treatment Health Maintenance Due Date Last Done Comments BONE DENSITY TESTING 1945 HEPATITIS C SCREENING 02/24/1964 DTAP/TDAP/TD VACCINES (1 - Tdap) 1965 PNEUMOCOCCAL VACCINE 50+ (1 of 1 - PCV) 02/29/1996 ZOSTER VACCINE (1 of 2) 02/29/1996 Respiratory Syncytial Virus (RSV) Vaccine Pt: or over 60 yrs (1 - 1-dose 75+ series) 2021 COVID-19 VACCINE ( - 2023-2 5 season) 2024 DEPRESSION SCREENING 10/14/2024 MEDICARE AWV CALENDAR YEAR 2024 INFLUENZA VACCINE (Season Ended) 2025 HEPATITIS B VACCINE Aged Out No longe r eligible based on patient's age to complete this topic HIB VACCINE Aged Out No longer eligi ble based on patient's age to complete this topic HPV VACCINE Aged Out No longer eligi ble based on patient's age to complete this topic MENINGOCOCCAL (Group B) VACC INE SHARED DECISION-MAKING Aged Out No longer eligibl e based on patient's age to complete this topic MENINGOCOCCAL GROUPS A/C/Y/W VACCINE Aged Out No longer eligible b ased on patient's age to complete this topic Care Teams Bevel Mill Operator Relationship Specialty Start Date End Date Jazlyn Downey MD [address] [place] [id number] PCP - General 12/13/22
--- OUTSIDE RECORDS SUMMARY | 2025-01-20 09:32 | XMS_ITS | Referral Summary ---
Author Organization [facility] [address] Address [address] [place] [address] Care Team Providers Care Donor Processor Name Role Phone Christine Sloan MD Primary Care Provi chato Allergies Active Allergy Reactions Criticality Noted Date Comments Codeine Unknown 03/26/2019 Meperidine Other (See comments) Low 04/16/2012 Medications latanoprost (XALATAN) 0.005 % ophthalmic solution 01/09/2019 Active vit A,C and B-gfgref-mwvoywz s (OCUVITE with LUTEIN) 1,000 unit-200 mg-60 unit-2 mg tabletIndication s:Vitamin Deficiency Prevention 1 tablet Active glucosamine-lewis droitin 250-200 mg tablet Take by mouth daily Active inulin (FIBER GUMMIES ORAL) Take by mouth Active cholecalciferol (VITAMIN D-3) 5,000 unit tablet Active Active Problems Problem Noted Date Diagnosed Date Hyperlipidemia 09/20/2020 Assessment & Plan (11/23/2021 10:18 AM [employer]): Lipid abnormalities; She is diet controlled. Will recheck lipid panel. Assessment & Plan (06/20/2021 9:16 AM CDT): Lipid abnormalities; She is diet controlled. Will repeat lipid panel in 3 months Assessment & Plan (05/16/2021 3:31 PM CDT): Lipid abnormalities; She has elevated tc and hdl. Advised to continue low fat diet. Will recheck labs in Sep. Assessment & Plan (03/29/2021 9:59 AM CDT): Lipid abnormalities: She will need repeat lipid panel. ( last tc was 229) Assessment & Plan (09/20/2020 11:09 AM [employer] DES[employer]ER): Lipid abnormalities: She has gained 20 pounds in past 1 year. Management pending labs. Encounter for screening mammogram for breast can cer 09/20/2020 Menopause 09/20/2020 Assessment & Plan (09/20/2020 11:14 AM [employer]ER): Needs dexa scan. She had infusions every other year for years. Management pending dexa scan Chronic right-sided low back pain without sciati ca 09/20/2020 Assessment & Plan (06/20/2021 9:18 AM CDT): She reports back pain is much better. She reports still huts if sits too long. She saw physical therapy and has stretches to do. Advised to do stretches daily and walk. Assessment & Plan (05/16/2021 2:33 PM CDT): Patient reports no longer having severe pain and no longer has pain down her right leg. Recommend try conservative treatment with physical therapy. Assessment & Plan (03/29/2021 9:56 AM CDT): Patient presents with worsening pain in her right low back with pain down her right thigh. She reports steady, constant pain. It used to be better with walking, but now hurts all the time. Will get xray of lumbar spine ( last xray was March 2019). She had MRI in 2014 and saw pain management in past. She denies any new incident or injury, Assessment & Plan (09/20/2020 11:19 AM [employer]ER): Patient presents with right sided low back pain. She denies radiation to LE. She had left low back pain in past and saw pain management in past. Advised if pain persists, call or rtc. Medicare annual wellness visit, subsequent 09/16 Assessment & Plan (11/23/2021 10:16 AM [employer]ER): Patient presents for annual exam. She reports had covid in Sep. Assessment & Plan (09/20/2020 11:14 AM [employer]): Patient here for annual exam. She is having new right sided back pain. She was treated in past by pain management. Advised if back pain persist, needs f/u ov Assessment & Plan (09/16/2019 12:05 PM [employer]OE DES[employer]KER): Patient here for annual exam . She has no issues. She plans on going to [place] to her daughter for xmas and then plans trip to [place] next March with friends. Screening for diabetes mellitus 09/16/2019 Assessment & Plan (11/23/2021 10:22 AM [employer]KER): Will check labs. She has gained weight Screening, lipid 09/16/2019 Chronic left-sided low back pain with left-sided sciatica 03/26/2019 Assessment & Plan (04/20/2019 1:15 PM CDT): Patient reports she is 90% better. She reports just occ pain still in her left low back. She reports worse after sitting too long. She reports feels better with walking. Continue home stretches. If pain persists, call or rtc. Assessment & Plan (03/26/2019 3:41 PM CDT): Patient presents with left low back pain x 2 months with pain down left leg to her ankle. She reports hx of 3 HD about 15 years ago and had 15 shots in her back from pain management . She reports no back pain x 15 years until about 2 months ago. She denies any new incident or injury. She rates pain 6/10 intensity. Will get xray of lumbar spine and place on zanaflex and medrol dose pack. No heavy lifting, heat/ice prn. Ov 3 wks or sooner if needed. Breast cancer screening 03/26/2019 Assessment & Plan (03/26/2019 3:40 PM CDT): She had mammogram in January 2019. Colon cancer screening 03/26/2019 Assessment & Plan (03/26/2019 3:39 PM CDT): Patient does not remember last colonoscopy . Will request records. She is going to contact prior GI and find out when she is due next. Osteopenia Assessment & Plan (03/26/2019 3:43 PM CDT): Patient reports she has osteopenia and gets reclast q2 years. Will request copy of her dexa scan. Immunizations Immunization Administration Dates Next Due Pfizer SARS-CoV-2 Monovalent Vaccination (12+ Yrs) PURPLE 11/02/2021,01/12/2021,12/21/2020 Social History Tobacco Use Types Packs/Day Years Used Date Smoking Tobacco: Never Smokeless Tobacco: Never Tobacco Cessation:Counseling Given: No Comments:never smoker Alcohol Use Standard Drinks/Week Comments Yes 1 (1 standard drink = 0.6 oz pur e alcohol) very little PHQ-2 Answer Date Recorded PHQ-2 Total Score (If total score is 3 or more points, staff should administer the PHQ-9) 0 11/23/2021 Personal Safety Answer Date Recorded Getting School Help Needed Not on file 12/27 Comments No Sex and Gender Information Value Date Recorded Sex Assigned at Not on file Legal Sex Female 12:26 AM [employer] Gender Identity Female 11/08/2021 7:42 AM [employer] Sexual Orientation Straight 11/08/2021 7: 42 AM [employer]KER Last Filed Vital Signs Vital Sign Reading Time Taken Comments Blood Pressure 110/70 11/23/2021 10:07 AM [employer] Pulse 68 09/16/2019 11:04 AM [employer] Temperature 36.3 C (97.3 F) 09/20/2020 10:59 AM [employer] Respiratory Rate - - Oxygen Saturation - - Inhaled Oxygen Concentration - - Weight 73.1 kg (161 lb 3.2 oz) 11/23/2021 10:07 AM [employer] Height 162.6 cm (5' 4.02 ) 11/23/2021 10:[address] Body Mass Index 27.65 11/23/2021 10:07 AM [employer] Plan of Treatment Not on file Procedures Procedure Name Priority Date/Time Associated Diagnosis Comments SCREENING MAMMOGRAM BILATERAL W JANET Schedule Routine, Read Routine (OP Routine) 11/18/2020 12:35 PM [employer] Encounter for screening mammogram for breast cancer DEXA AXIAL SKELETON BONE DENSITY 1 OR MORE SITES Schedule Routine, Read Routine (OP Routine) 11/18/2020 12:17 PM [employer]ER Menopause HM COLONOSCOPY Routine 10/14/2013 from Last 3 Months or Most Recently Relevant to Health Maintenance Results * SCREENING MAMMOGRAM BILATERAL W JANET (11/18/2020 12:35 PM C[employer] DES[employer]) Anatomical Region Laterality Modality Breast Bilateral Mammography 11/18/2020 Impressions 11/18/2020 4:18 PM [employer]ER Asymmetry in the left breast requires additional evaluation. Recommend additional mammographic views and, if indicated, breast ultrasound. In the right breast, no suspicious masses, calcifications or other abnormalities are seen. BI-RADS Category 0: Incomplete: Needs Additional Imaging Evaluation Narrative 11/18/2020 4:18 PM [employer]ER EXAM: Bilateral Digital Screening Mammogram With Tomosynthesis - 11/18/2020 HISTORY: Patient is a 75 year old female and is seen for screening. The patient has the following family history of breast cancer: paternal grandmother. FILMS COMPARED: The present examination has been compared to a prior imaging study performed at [facility] on 01/15/2019. MAMMOGRAM FINDINGS: Bilateral CC tomosynthesis and C-view images and bilateral MLO tomosynthesis and C-view images were obtained. There are scattered fibroglandular densities. There is an asymmetry seen in the CC view only seen in the middle lateral region of the left breast located 9 centimeters from the nipple. In the right breast, no suspicious masses, calcifications or other abnormalities are seen. Digital breast tomosynthesis was performed and reviewed as a part of this examination. Procedure Note Sharonda Hernandez MD - 11/18/2020 EXAM: Bilateral Digital Screening Mammogram With Tomosynthesis - 11/18/2020 HISTORY: Patient is a 75 year old female and is seen for screening. Thepatient has the following family history of breast cancer: paternalgrandmother. FILMS COMPARED: The present examination has been compared to a prior imaging study performed at [facility] on 01/15/2019. MAMMOGRAM FINDINGS: Bilateral CC tomosynthesis and C-view images and bilateral MLO tomosynthesis and C-view images were obtained. There are scattered fibroglandular densities. There is an asymmetry seen in the CC view only seen in the middlelateral region of the left breast located 9 centimeters from the nipple. In the right breast, no suspicious masses, calcifications or other abnormalities are seen. Digital breast tomosynthesis was performed and reviewed as a part ofthis examination. IMPRESSION: Asymmetry in the left breast requires additional evaluation. Recommend additional mammographic views and, if indicated, breast ultrasound. In the right breast, no suspicious masses, calcifications or other abnormalities are seen. BI-RADS Category 0: Incomplete: Needs Additional Imaging Evaluation us Christine Sloan MD IMG MAMMO PROCEDURE S Final Result * Dexa Axial Skeleton Bone Density 1 or 2 Site (11/18/2020 12:17 PM C[employer] DES[employer]) Anatomical Region Laterality Modality Body N/A Other 11/18/2020 12:5 8 PM [employer]ER Impressions 11/18/2020 12:58 PM [employer]ER 1. The bone mineral density of the lumbar spine is mildly decreased. 2. The bone mineral density of the left femoral neck is mildly decreased. 3. The bone mineral density of the left total hip is mildly decreased. 4. Overall, the above findings are diagnostic of low bone mass (osteopenia) by WHO criteria. 5. Based on the FRAX fracture risk model, the 10-year probability for major osteoporotic fracture is 23% and that for hip fracture is 13%. This 10-year fracture risk estimate was calculated using the risk factors noted in the history above, along with the femoral neck bone density. FRAX is intended to help guide treatment decisions in men over age 50 and postmenopausal women with low bone mass (osteopenia). The National Osteoporosis Foundation (NOF) recommends that FDA-approved medical therapies be considered in postmenopausal women and men age 50 years and older with osteoporosis and those with low bone mass whose 10-year fracture probability by FRAX is >= 20% for major osteoporotic fracture or >= 3% for hip fracture. However, all treatment decisions require clinical judgment and consideration of individual patient factors, including patient preferences, comorbidities, previous drug use, risk factors not captured in the FRAX model (e.g., frailty, falls, vitamin D deficiency, increased bone turnover, interval significant decline in bone density) and possible under- or overestimation of fracture risk by FRAX. General comments regarding interpretation of bone density measurements: A) In children, premenopausal woman and males under age 50 not at increased risk for fractures only Z-scores, not T-scores are used to indicate risk. A Z-score above -2.0 is defined as within the expected range for age and Z-score at or less than -2.0 is below the expected range for age . A Z-score below the expected range for age in a patient with recent fractures and/or chronic corticosteroid treatment is consistent with a diagnosis of osteoporosis. B) In post menopausal women and males over 50, comparison of the measured bone mineral density with the average value in young normal subjects (the T-score ) has been found to be useful in assessing fracture risk. Fracture risk approximately doubles for each 1.0 standard deviation (SD) in individual's hip or spine bone mineral density is below the average value of young normal subjects. The World Health Organization (WHO) has defined T-scores of -1.0 to -2.5 as diagnostic of low bone mass (OSTEOPENIA), and T-scores of -2.5 or lower to be diagnostic of OSTEOPOROSIS, based on the site of lowest bone density. Note that there will be a change in reporting format and reference databases as patients move from the younger population (group A) to the older population (group B) The National Osteoporosis Foundation (www.nof.org) recommends adequate intake of calcium and vitamin D and regular weight-bearing exercise in all patients. They recommend pharmacologic treatment in postmenopausal women and men age 50 and older presenting with any of the followin) Osteoporosis, after appropriate evaluation to exclude secondary causes. 2) A hip or vertebral (clinical or radiographic) fracture, regardless of the bone density. 3) Low bone mass (Osteopenia) and one or more of: other prior fractures, secondary causes associated with high risk of fracture (such as glucocorticoid use or total immobilization), or computed high risk of fracture (10-yr probability of hip fracture >= 3% or a 10-yr probability of any major osteoporosis-related fracture >= 20% based on the [place].-adapted WHO algorithm), available at http://www.shef.ac.uk/FRAX). Electronically signed by: Sharonda Hernandez M.D. 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 Evaluate bone mineral density. Additional risk factors for fracture: parental fracture. FINDINGS (SPINE): The bone mineral density of L1-L4 was assessed by dual-energy x-ray absorptiometry. The average bone mineral density within this region is 0.910 gm/sq-cm. This is 1.1 standard deviations above the mean of the average bone mineral density for age- and gender-matched subjects (the Z-score). It is 1.2 standard deviations below the mean peak bone mineral density in young adults (the T-score). FINDINGS (FEMORAL NECK): The bone mineral density of the left femoral neck was assessed by dual-energy x-ray absorptiometry. The average bone mineral density within the femoral neck region is 0.612 gm/sq-cm. This is 0.1 standard deviations below the mean of the average bone mineral density for age- and gender-matched subjects (the Z-score). It is 2.1 standard deviations below the mean peak bone mineral density in young adults (the T-score). FINDINGS (TOTAL HIP): The bone mineral density of the left hip was assessed by dual-energy x-ray absorptiometry. The average bone mineral density within the total hip region is 0.734 gm/sq-cm. This is 0.1 standard deviations above the mean of the average bone mineral density for age- and gender-matched subjects (the Z-score). It is 1.7 standard deviations below the mean peak bone mineral density in young adults (the T-score). SUMMARY OF CURRENT RESULTS: Region BMD T-score Z-score AP Spine (L1-L4) 0.910 -1.2 1.1 Femoral Neck (Left) 0.612 -2.1 -0.1 Total Hip (Left) 0.734 -1.7 0.1 Procedure Note Sharonda Hernandez MD - 11/18/2020 BONE DENSITOMETRY OF THE SPINE AND HIP DATE OF STUDY: 11/18/2020 HISTORY: 75-year-old postmenopausal woman. Evaluate bone mineral density. Additional risk factors for fracture: parental fracture. FINDINGS (SPINE): The bone mineral density of L1-L4 was assessed by dual-energy x-ray absorptiometry. The average bone mineral density within this region is 0.910 gm/sq-cm. This is 1.1 standard deviations above the mean of the average bone mineral density for age- and gender-matched subjects (the Z-score). It is 1.2 standard deviations below the mean peak bone mineral density in young adults (the T-score). FINDINGS (FEMORAL NECK): The bone mineral density of the left femoral neck was assessed by dual-energy x-ray absorptiometry. The average bone mineral density within the femoral neck region is 0.612 gm/sq-cm. This is 0.1 standard deviations below the mean of the average bone mineral density for age- and gender-matched subjects (the Z-score). It is 2.1 standard deviations below the mean peak bone mineral density in young adults (the T-score). FINDINGS (TOTAL HIP): The bone mineral density of the left hip was assessed by dual-energy x-ray absorptiometry. The average bone mineral density within the total hip region is 0.734 gm/sq-cm. This is 0.1 standard deviations above the mean of the average bone mineral density for age- and gender-matched subjects (the Z-score). It is 1.7 standard deviations below the mean peak bone mineral density in young adults (the T-score). SUMMARY OF CURRENT RESULTS: Region BMD T-score Z-score AP Spine (L1-L4) 0.910 -1.2 1.1 Femoral Neck (Left) 0.612 -2.1 -0.1 Total Hip (Left) 0.734 -1.7 0.1 IMPRESSION: 1. The bone mineral density of the lumbar spine is mildly decreased. 2. The bone mineral density of the left femoral neck is mildly decreased. 3. The bone mineral density of the left total hip is mildly decreased. 4. Overall, the above findings are diagnostic of low bone mass (osteopenia) by WHO criteria. 5. Based on the FRAX fracture risk model, the 10-year probability for major osteoporotic fracture is 23% and that for hip fracture is 13%. This 10-year fracture risk estimate was calculated using the risk factors noted in the history above, along with the femoral neck bone density. FRAX is intended to help guide treatment decisions in men over age 50 and postmenopausal women with low bone mass (osteopenia). The National Osteoporosis Foundation (NOF) recommends that FDA-approved medical therapies be considered in postmenopausal women and men age 50 years and older with osteoporosis and those with low bone mass whose 10-year fracture probability by FRAX is >= 20% for major osteoporotic fracture or >= 3% for hip fracture. However, all treatment decisions require clinical judgment and consideration of individual patient factors, including patient preferences, comorbidities, previous drug use, risk factors not captured in the FRAX model (e.g., frailty, falls, vitamin D deficiency, increased bone turnover, interval significant decline in bone density) and possible under- or overestimation of fracture risk by FRAX. General comments regarding interpretation of bone density measurements: A) In children, premenopausal woman and males under age 50 not at increased risk for fractures only Z-scores, not T-scores are used to indicate risk. A Z-score above -2.0 is defined as within the expected range for age and Z-score at or less than -2.0 is below the expected range for age . A Z-score below the expected range for age in a patient with recent fractures and/or chronic corticosteroid treatment is consistent with a diagnosis of osteoporosis. B) In post menopausal women and males over 50, comparison of the measured bone mineral density with the average value in young normal subjects (the T-score ) has been found to be useful in assessing fracture risk. Fracture risk approximately doubles for each 1.0 standard deviation (SD) in individual's hip or spine bone mineral density is below the average value of young normal subjects. The World Health Organization (WHO) has defined T-scores of -1.0 to -2.5 as diagnostic of low bone mass (OSTEOPENIA), and T-scores of -2.5 or lower to be diagnostic of OSTEOPOROSIS, based on the site of lowest bone density. Note that there will be a change in reporting format and reference databases as patients move from the younger population (group A) to the older population (group B) The National Osteoporosis Foundation (www.nof.org) recommends adequate intake of calcium and vitamin D and regular weight-bearing exercise in all patients. They recommend pharmacologic treatment in postmenopausal women and men age 50 and older presenting with any of the followin) Osteoporosis, after appropriate evaluation to exclude secondary causes. 2) A hip or vertebral (clinical or radiographic) fracture, regardless of the bone density. 3) Low bone mass (Osteopenia) and one or more of: other prior fractures, secondary causes associated with high risk of fracture (such as glucocorticoid use or total immobilization), or computed high risk of fracture (10-yr probability of hip fracture >= 3% or a 10-yr probability of any major osteoporosis-related fracture >= 20% based on the [place].-adapted WHO algorithm), available at http://www.shef.ac.uk/FRAX). Electronically signed by: Sharonda Hernandez M.D. Christine Sloan MD IMG DXA PROCEDURES Final Result * COLONOSCOPY (10/14/2013) Colonoscopy Normal Historical Provider HEALTH MAINTENANCE Final Result from Last 3 Months or Most Recently Relevant to Health Maintenance Insurance [facility] Care Teams Donor Processor Relationship Specialty Start Date End Date Christine Sloan MD [address] [facility] [address] [place] [id number] PCP - General Family Medicine 03/26/19
--- OUTSIDE RECORDS SUMMARY | 2025-01-20 09:32 | XMS_ITS | Clinical Summary ---
Author Organization [facility] [address] Address [address] [place] [address] Care Team Providers Care Commercial Correspondent Name Role Phone Christine Sloan MD Primary Care Provi chato Allergies Active Allergy Reactions Criticality Noted Date Comments Codeine Unknown 03/26/2019 Meperidine Other (See comments) Low 04/16/2012 Medications latanoprost (XALATAN) 0.005 % ophthalmic solution 01/09/2019 Active vit A,C and I-dpxtwt-hobaleh s (OCUVITE with LUTEIN) 1,000 unit-200 mg-60 unit-2 mg tabletIndication s:Vitamin Deficiency Prevention 1 tablet Active glucosamine-lewis droitin 250-200 mg tablet Take by mouth daily Active inulin (FIBER GUMMIES ORAL) Take by mouth Active cholecalciferol (VITAMIN D-3) 5,000 unit tablet Active Active Problems Problem Noted Date Diagnosed Date Hyperlipidemia 09/20/2020 Assessment & Plan (11/23/2021 10:18 AM SERVICE CENTER REPRESENTATIVE): Lipid abnormalities; She is diet controlled. Will [...] 229) Assessment & Plan (09/20/2020 11:09 AM SERVICE CENTER REPRESENTATIVE): Lipid abnormalities: She has gained 20 pounds in past 1 year. Management pending labs. Encounter for screening mammogram for breast can cer 09/20/2020 Menopause 09/20/2020 Assessment & Plan (09/20/2020 11:14 AM SERVICE CENTER REPRESENTATIVE): Needs dexa scan. She had infusions every [...] injury, Assessment & Plan (09/20/2020 11:19 AM SERVICE CENTER REPRESENTATIVE): Patient presents with right sided low back pain. She denies radiation to LE. She had left low back pain in past and saw pain management in past. Advised if pain persists, call or rtc. Medicare annual wellness visit, subsequent 09/16 Assessment & Plan (11/23/2021 10:16 AM SERVICE CENTER REPRESENTATIVE): Patient presents for annual exam. She reports had covid in Sep. Assessment & Plan (09/20/2020 11:14 AM SERVICE CENTER REPRESENTATIVE): Patient here for annual exam. She is having new right sided back pain. She was treated in past by pain management. Advised if back pain persist, needs f/u ov Assessment & Plan (09/16/2019 12:05 PM SERVICE CENTER REPRESENTATIVE): Patient here for annual exam . She has no issues. She plans on going to [place] to her daughter for xmas and then plans trip to [place] next March with friends. Screening for diabetes mellitus 09/16/2019 Assessment & Plan (11/23/2021 10:22 AM SERVICE CENTER REPRESENTATIVE): Will check labs. She has gained weight [...] SARS-CoV-2 Monovalent Vaccination (12+ Yrs) PURPLE 11/02/2021,01/12/2021,12/21/2020 Surgical History Surgery Date Site/Laterality Comments HYSTERECTOMY CATARACT EXTRACTION TUBAL LIGATION Medical History Medical History Date Comments Diverticulosis Osteopenia Glaucoma 2017 Family History Medical History Relation Name Comments Diabetes Father Hosea Karlos Glaucoma Father Hosea Karlos Diabetes Maternal Grandfather Saurabh Karlos Breast cancer Maternal Grandmother Cancer Mother Renee Karlos Lung cancer Mother Renee Karlos Lung cancer Sister Hypertension Son Mariano Zamorano Relation Name Status Comments Father Hosea Karlos Maternal Grandfather Saurabh Karlos Maternal Grandmother Mother Renee Karlos Sister Son Mariano Zamorano Social History Tobacco Use Types Packs/Day Years [...] on file Legal Sex Female 12:26 AM SERVICE CENTER REPRESENTATIVE Gender Identity Female 11/08/2021 7:42 AM SERVICE CENTER REPRESENTATIVE Sexual Orientation Straight 11/08/2021 7: 42 AM SERVICE CENTER REPRESENTATIVE Obstetrics History Last Filed Vital Signs Vital Sign Reading Time Taken Comments Blood Pressure 110/70 11/23/2021 10:07 AM SERVICE CENTER REPRESENTATIVE Pulse 68 09/16/2019 11:04 AM SERVICE CENTER REPRESENTATIVE Temperature 36.3 C (97.3 F) 09/20/2020 10:59 AM SERVICE CENTER REPRESENTATIVE Respiratory Rate - - Oxygen Saturation - - Inhaled Oxygen Concentration - - Weight 73.1 kg (161 lb 3.2 oz) 11/23/2021 10:07 AM SERVICE CENTER REPRESENTATIVE Height 162.6 cm (5' 4.02 ) 11/23/2021 10:07 AM C Body Mass Index 27.65 11/23/2021 10:07 AM SERVICE CENTER REPRESENTATIVE Plan of Treatment Health Maintenance Due Date Last Done Comments Hepatitis C Screening 1945 DTaP/Tdap/Td Vaccine (1 - Tdap) 1957 Hepatitis B Screening 02/29/1964 Zoster Vaccine (1 of 2) 02/29/1996 Osteoporosis Screening-Bone Density Scan 11/18/2022 11/18/2020 Depression Screening 11/23/2022 11/23/2021, 09/20/2020, 09/16/2019, Additional history exists Fall Risk Assessment 11/23/2022 11/23/2021, 09/20/2020, 09/16/2019, Additional history exists Well Visit 65+ 11/23/2022 11/23/2021, 05/2020, 09/16/2019 Covid-19 Vaccine (2023-2 5 season) 2024 11/02/2021, 01/12/2021, 12/21/2020 Colon Cancer Screening-CT Colonography Discontinued 10/14/2013 Colon Cancer Screening-Colonoscopy Discontinued 10/14/2013 Colon Cancer Screening-DNA Stool Discontinued 10/14/19 14 Colon Cancer Screening-FIT Discontinued 10/14/2013 Colon Cancer Screening-FOBT Discontinued 10/14/2013 Colon Cancer Screening-Sigmoidoscopy Discontinued 10/14/2013 Colorectal Cancer Screening Discontinued Breast Cancer Screening-Mammogram Discontinued 021, 01/15/2019 Influenza Vaccine Discontinued Pneumococcal vaccine 65+ Discontinued Procedures Procedure Name Priority Date/Time Associated Diagnosis Comments SCREENING MAMMOGRAM BILATERAL W JANET Schedule Routine, Read Routine (OP Routine) 11/18/2020 12:35 PM SERVICE CENTER REPRESENTATIVE Encounter for screening mammogram for breast cancer DEXA AXIAL SKELETON BONE DENSITY 1 OR MORE SITES Schedule Routine, Read Routine (OP Routine) 11/18/2020 12:17 PM SERVICE CENTER REPRESENTATIVE Menopause HM COLONOSCOPY Routine 10/14/2013 from Last 3 Months or Most Recently Relevant to Health Maintenance Results * SCREENING MAMMOGRAM BILATERAL W JANET (11/18/2020 12:35 PM SERVICE CENTER REPRESENTATIVE) Anatomical Region Laterality Modality Breast Bilateral Mammography 11/18/2020 Impressions 11/18/2020 4:18 PM SERVICE CENTER REPRESENTATIVE Asymmetry in the left breast requires additional evaluation. Recommend additional mammographic views and, if indicated, breast ultrasound. In the right breast, no suspicious masses, calcifications or other abnormalities are seen. BI-RADS Category 0: Incomplete: Needs Additional Imaging Evaluation Narrative 11/18/2020 4:18 PM SERVICE CENTER REPRESENTATIVE EXAM: Bilateral Digital Screening Mammogram With Tomosynthesis - 11/18/2020 HISTORY: Patient is a 75 year old female and is seen for screening. The patient has the following family history of breast cancer: paternal grandmother. FILMS COMPARED: The present examination has been compared to a prior imaging study performed at [facility] on 01/15/2019. MAMMOGRAM FINDINGS: Bilateral CC tomosynthesis [...] to a prior imaging study performed at [facility] on 01/15/2019. MAMMOGRAM FINDINGS: Bilateral CC tomosynthesis [...] 1 or 2 Site (11/18/2020 12:17 PM SERVICE CENTER REPRESENTATIVE) Anatomical Region Laterality Modality Body N/A Other 11/18/2020 12:5 8 PM SERVICE CENTER REPRESENTATIVE Impressions 11/18/2020 12:58 PM SERVICE CENTER REPRESENTATIVE 1. The bone mineral density of the [...] Sharonda Hernandez M.D. Narrative 11/18/2020 12:58 PM SERVICE CENTER REPRESENTATIVE BONE DENSITOMETRY OF THE SPINE AND HIP [...] by: Sharonda Hernandez M.D. Christine Sloan MD [facility] DXA PROCEDURES Final Result * COLONOSCOPY (10/14/2013) HM Colonoscopy Normal us Historical Provider HEALTH MAINTENANCE Final Result from Last 3 Months or Most Recently Relevant to Health Maintenance Insurance [facility] Care Teams Commercial Correspondent Relationship Specialty Start Date End Date Christine Sloan MD [address] [facility] [address] [place] [address] PCP - General Family Medicine 03/26/19
== END 2025-01-20 08:48 | disposition home or self-care (01) ==
LOC: ANHIMG 08:53
PROVIDERS: PCP Family Medicine; Visit Provider Family Medicine
DX: Z78.0 Asymptomatic menopausal state (principal); M85.88 Other specified disorders of bone density and structure, other site; M85.852 Other specified disorders of bone density and structure, left thigh; M85.851 Other specified disorders of bone density and structure, right thigh
CPT/HCPCS: 77080

== ENCOUNTER 2025-05-27 09:01 | Outpatient (CLI) | payer OTHER, SELFPAY ==
--- OUTSIDE RECORDS SUMMARY | 2025-05-27 09:14 | XMS_ITS | Clinical Summary ---
Author Organization [facility] Address [address] [address] Care Team Providers Care Concession Attendant Name Role Phone Jazlyn Downey MD Primary Care Provider [phone] Source Comments [facility] Aff[facility]ates and Associated Physician Practices is amultiple site organization consisting of ambulatory clinics and hospital sitesin [place], [place], [place] and [place]. This disclosure is being madepursuant to the Care Everywhere program and may not contain all information available regarding this patient. Last updated 18.[facility] Family History Medical History Relation Name Comments Cancer - Breast Paternal Grandmother Relation Name Status Comments Paternal Grandmother Social History Tobacco Use Types Packs/Day Years Used Date Smoking Tobacco: Never Assessed Comments Unknown Sex and Gender Information Value Date Recorded Sex Assigned at Not on file Legal Sex Female 6:30 PM ACCOUNT RESOLUTION SPECIALIST Gender Identity Not on file Sexual Orientation Not on file Plan of Treatment Health Maintenance Due Date Last Done Comments BONE DENSITY TESTING 1945 DTAP/TDAP/TD VACCINES (1 - Tdap) 1965 PNEUMOCOCCAL VACCINE 50+ (1 of 1 - PCV) 02/29/1996 ZOSTER VACCINE (1 of 2) 02/29/1996 Respiratory Syncytial Virus (RSV) Vaccine Pt: or over 60 yrs (1 - 1-dose 75+ series) 2021 COVID-19 VACCINE ( - 2023-2 5 season) 2024 DEPRESSION SCREENING 10/14/2024 INFLUENZA VACCINE (#1) 2025 HEPATITIS B VACCINE Aged Out No [...] on patient's age to complete this topic Insurance [facility] MEDICARE [facility] MED[facility] Care Teams Concession Attendant Relationship Specialty Start Date End Date Jazlyn Downey MD [address] [place] [address] PCP - General 12/13/22
--- OUTSIDE RECORDS SUMMARY | 2025-05-27 09:14 | XMS_ITS | Clinical Summary ---
Author Organization [facility] Care Team Providers Care Airplane Pilot Name Role Phone Unavailable Primary Care Provider [...] Due Date Last Done Comments Hepatitis C Virus (HCV) Screening 1945 TdaP Immunization 1945 Pneumococcal Immunization (5 0+ years) (1 of 1 - PCV) 02/29/1996 Zoster Immunization (1 of 2) 02/29/1996 Respiratory Syncytial Virus (RSV) Immunization (Adult) (1 - 1-dose 75+ series) 2021 SARS-COV-2 Immunization ( - 2023- season) 2024 Influenza Immunization (#1) 2025 Hepatitis B Immunization Aged Out No longer eligible based on patient's age to complete this topic Human Papillomavirus (HPV) Immunization Aged Out No longer eligible b ased on patient's age to complete this topic Meningococcal Immunization (ACWY) Aged Out No longer eligible based on patient's age to complete this topic Rotavirus Immunization Aged Out No lo nger eligible based on patient's age to complete this topic
--- OUTSIDE RECORDS SUMMARY | 2025-05-27 09:14 | XMS_ITS | Clinical Summary ---
Author Organization [facility] [address] Address [address] [place] [address] Care Team Providers Care Film Processing Supervisor Name Role Phone Christine Sloan MD Primary Care Provi chato Allergies Active Allergy Reactions Criticality Noted Date Comments Codeine Unknown 03/26/2019 Meperidine Other (See comments) Low 04/16/2012 Medications latanoprost (XALATAN) 0.005 % ophthalmic solution 01/09/2019 Active vit A,C and H-kmlaom-eqrkneu s (OCUVITE with LUTEIN) 1,000 unit-200 mg-60 unit-2 mg tabletIndication s:Vitamin Deficiency Prevention 1 tablet Active glucosamine-lewis droitin 250-200 mg tablet Take by mouth daily Active inulin (FIBER GUMMIES ORAL) Take by mouth Active cholecalciferol (VITAMIN D-3) 5,000 unit tablet Active Active Problems Problem Noted Date Diagnosed Date Hyperlipidemia 09/20/2020 Assessment & Plan (11/23/2021 10:18 AM CHIEF PSYCHOLOGY): Lipid abnormalities; She is diet controlled. Will [...] 229) Assessment & Plan (09/20/2020 11:09 AM CHIEF PSYCHOLOGY): Lipid abnormalities: She has gained 20 pounds in past 1 year. Management pending labs. Encounter for screening mammogram for breast can cer 09/20/2020 Menopause 09/20/2020 Assessment & Plan (09/20/2020 11:14 AM CHIEF PSYCHOLOGY): Needs dexa scan. She had infusions every [...] was March 2019). She had MRI in 2015 and saw pain management in past. She denies any new incident or injury, Assessment & Plan (09/20/2020 11:19 AM CHIEF PSYCHOLOGY): Patient presents with right sided low back pain. She denies radiation to LE. She had left low back pain in past and saw pain management in past. Advised if pain persists, call or rtc. Medicare annual wellness visit, subsequent 09/16 Assessment & Plan (11/23/2021 10:16 AM CHIEF PSYCHOLOGY): Patient presents for annual exam. She reports had covid in Sep. Assessment & Plan (09/20/2020 11:14 AM CHIEF PSYCHOLOGY): Patient here for annual exam. She is having new right sided back pain. She was treated in past by pain management. Advised if back pain persist, needs f/u ov Assessment & Plan (09/16/2019 12:05 PM CHIEF PSYCHOLOGY): Patient here for annual exam . She has no issues. She plans on going to [place] to her daughter for xmas and then plans trip to [place] next March with friends. Screening for diabetes mellitus 09/16/2019 Assessment & Plan (11/23/2021 10:22 AM CHIEF PSYCHOLOGY): Will check labs. She has gained weight [...] Grandfather Saurabh Karlos Maternal Grandmother Mother Renee Avilaerhart Sister Son Mariano Zamorano Social History Tobacco [...] on file Legal Sex Female 12:26 AM CHIEF PSYCHOLOGY Gender Identity Female 11/08/2021 7:42 AM CHIEF PSYCHOLOGY Sexual Orientation Straight 11/08/2021 7: 42 AM CHIEF PSYCHOLOGY Obstetrics History Last Filed Vital Signs Vital Sign Reading Time Taken Comments Blood Pressure 110/70 11/23/2021 10:07 AM CHIEF PSYCHOLOGY Pulse 68 09/16/2019 11:04 AM CHIEF PSYCHOLOGY Temperature 36.3 C (97.3 F) 09/20/2020 10:59 AM CHIEF PSYCHOLOGY Respiratory Rate - - Oxygen Saturation - - Inhaled Oxygen Concentration - - Weight 73.1 kg (161 lb 3.2 oz) 11/23/2021 10:07 AM CHIEF PSYCHOLOGY Height 162.6 cm (5' 4.02) 11/23/2021 10:07 AM Sarita MANCILLA Body Mass Index 27.65 11/23/2021 10:07 AM CHIEF PSYCHOLOGY Plan of Treatment Health Maintenance Due Date [...] Read Routine (OP Routine) 11/18/2020 12:35 PM CHIEF PSYCHOLOGY Encounter for screening mammogram for breast cancer DEXA AXIAL SKELETON BONE DENSITY 1 OR MORE SITES Schedule Routine, Read Routine (OP Routine) 11/18/2020 12:17 PM CHIEF PSYCHOLOGY Menopause HM COLONOSCOPY Routine 10/14/2013 from Last 3 Months or Most Recently Relevant to Health Maintenance Results * SCREENING MAMMOGRAM BILATERAL W JANET (11/18/2020 12:35 PM CHIEF PSYCHOLOGY) Anatomical Region Laterality Modality Breast Bilateral Mammography 11/18/2020 Impressions 11/18/2020 4:18 PM CHIEF PSYCHOLOGY Asymmetry in the left breast requires additional evaluation. Recommend additional mammographic views and, if indicated, breast ultrasound. In the right breast, no suspicious masses, calcifications or other abnormalities are seen. BI-RADS Category 0: Incomplete: Needs Additional Imaging Evaluation Narrative 11/18/2020 4:18 PM CHIEF PSYCHOLOGY EXAM: Bilateral Digital Screening Mammogram With Tomosynthesis - 11/18/2020 HISTORY: Patient is a 75 year old female and is seen for screening. The patient has the following family history of breast cancer: paternal grandmother. FILMS COMPARED: The present examination has been compared to a prior imaging study performed at [facility] on 01/15/2019. MAMMOGRAM FINDINGS: Bilateral CC tomosynthesis [...] to a prior imaging study performed at [facility] on 01/15/2019. MAMMOGRAM FINDINGS: Bilateral CC tomosynthesis [...] 1 or 2 Site (11/18/2020 12:17 PM CHIEF PSYCHOLOGY) Anatomical Region Laterality Modality Body N/A Other 11/18/2020 12:5 8 PM CHIEF PSYCHOLOGY Impressions 11/18/2020 12:58 PM CHIEF PSYCHOLOGY 1. The bone mineral density of the [...] -2.0 is below the expected range for age. A Z-score below the expected range for age in a patient with recent fractures and/or chronic corticosteroid treatment is consistent with a diagnosis of osteoporosis. B) In post menopausal women and males over 50, comparison of the measured bone mineral density with the average value in young normal subjects (the T-score) has been found to be useful in [...] Sharonda Hernandez M.D. Narrative 11/18/2020 12:58 PM CHIEF PSYCHOLOGY BONE DENSITOMETRY OF THE SPINE AND HIP [...] -2.0 is below the expected range for age. A Z-score below the expected range for age in a patient with recent fractures and/or chronic corticosteroid treatment is consistent with a diagnosis of osteoporosis. B) In post menopausal women and males over 50, comparison of the measured bone mineral density with the average value in young normal subjects (the T-score) has been found to be useful in [...] by: Sharonda Hernandez M.D. Christine Sloan MD [facility] DXA PROCEDURES Final Result * COLONOSCOPY (10/14/2013) [facility] Colonoscopy Normal Historical Provider HEALTH MAINTENANCE Final Result from Last 3 Months or Most Recently Relevant to Health Maintenance Insurance [facility] Care Teams Film Processing Supervisor Relationship Specialty Start Date End Date Christine Sloan MD [address] [facility] [address] [place] [address] PCP - General Family Medicine 03/26/19
--- OUTSIDE RECORDS SUMMARY | 2025-05-27 09:14 | XMS_ITS | Continuity of Care Document ---
Author Organization [facility] Address [address] [place] [address] Phone Care Team Providers Care Certified Health Education Specialist Name Role Phone Wilber Montalvo Unavailable Unavailable Procedures Procedure Date Post-op Follow-up Visit Post-op Follow-up Visit Remove Cataract, Insert Lens Eye Exam & Treatment IOLMaster-Professional Post-op Follow-up Visit Post-op Follow-up Visit Remove Cataract, Insert Lens Office/outpatient Visit, [facility] IOLMaster Cataract Kit SEC MV Tax - Medical Advance Directives Directive Yes / No Effective Date File Name No Information Encounters Encounter Description Practice Location Reason(s) For Visit Diagnoses Date Provider Providers Copied on Encounter [facility], [address] [place] [address] [address], [place], [place], [id number], [place] tel:[phone] [facility] No Information Nov-1 0-201 0 Katia Merino. [address] , [address], [place], [address], [place]. tel:[phone] [facility], [address], [place], [place], [id number], [place] tel:[phone] [facility] No Information Aug-0 3-201 0 Katia Merino. [address] , [address], [place], [address], [place]. tel:[phone] [facility], [address], [place], [place], [id number], [place] tel:[phone] [facility] No Information Nov-0 2-201 0 Doisy Edward. [address] , [address], [place], [place], [facility], . tel:[phone] Referring Provider: Giovanna Chi OD, [address], [place], [address]. tel:[phone] [facility], [address], [place], [place], [id number], tel:[phone] [facility] No Information Oct-2 2-201 0 Doisy Edward. [address] , [address], [place], [place], [facility], . tel:[phone] Referring Provider: Giovanna Chi OD, [address], [place], [address]. tel:[phone] [facility], [address], [place], [place], [address], [place] tel:[phone] [facility] No Information Mar-2 5-201 0 Doisy Edward. [address] , [address], [place], [facility], [place]. tel:[phone] [facility], [address], [place], [place], [address], [place] tel:[phone] [facility] No Information Mar-1 7-201 0 Doisy Edward. [address] , [address], [place], [facility], [place]. tel:[phone] [facility], [address], [place], [place], [address], [place] tel:[phone] [facility] No Information 6-201 0 Doisy Edmartine. [address] , [address], [place], [address], [place]. tel:[phone] Referring Provider: Giovanna Chi OD, [address], [place], [address]. tel:[phone] Office/outpat ient Visit, [facility], [address], [place], [place], [id number], [place] tel:[phone] [facility] No Information 0-201 0 Doisy Edward. [address] , [address], [place], [address], [place]. tel:[phone] Referring Provider: Giovanna Chi OD, [address], [place], [address]. tel:[phone] Family History Family Member Type Diagnosis Age [...]
[2025-05-27 10:31] LABS: Alanine Aminotransferase 16 U/L (6-35); Albumin Level 4.0 g/dL (3.5-5.1); Alkaline Phosphatase 70 U/L (38-126); Anion Gap 7 mmol/L (4-12); Aspartate Amino Transferase 28 U/L (14-36); Bilirubin,Total 0.6 mg/dL (0.2-1.3); Blood Urea Nitrogen 16 mg/dL (7-17); Calcium 9.3 mg/dL (8.4-10.2); Carbon Dioxide 28 mmol/L (22-30); Chloride 105 mmol/L (98-107); Cholesterol 173 mg/dL (0-200); Estimated Glomerular Filt Rate > 60; Glucose 77 mg/dL (65-110); HDL Direct 85 mg/dL; Potassium 4.1 mmol/L (3.4-5.0); Sodium 140 mmol/L (137-145); Total Protein 7.3 g/dL (6.3-8.2); Triglycerides 53 mg/dL (<150)
== END 2025-05-27 09:02 | disposition home or self-care (01) ==
LOC: ANHLAB 09:03
PROVIDERS: PCP Family Medicine; Visit Provider Family Medicine
DX: E78.2 Mixed hyperlipidemia (principal); M81.0 Age-related osteoporosis without current pathological fracture
CPT/HCPCS: 36415; 80053; 80061; 82306